=== PATIENT | male | born 1965 | race Caucasian/White ===

== ENCOUNTER 2019-08-14 17:17 | Emergency (ER) | payer MEDICARE, SELFPAY ==
[2019-08-14] VITALS (29 sets, daily range): BP systolic 103–134; BP diastolic 63–82; PULSE 71–86; RESP 10–22; TEMP 36.9; O2SAT 91–98; BMI 42.0
--- NOTE | 2019-08-14 17:35 | XRR_ITS ---
PROCEDURE INFORMATION: Exam: XR Chest, 1 View Exam date and time: 08/14/2019 5:36 PM Age: 54 years old Clinical indication: Chest pain; Additional info: Cp TECHNIQUE: Imaging protocol: XR of the chest Views: 1 view. COMPARISON: CR Chest 1 [place] [id number] 10/22/2018 5:23 PM FINDINGS: Lungs: Unremarkable. No consolidation. Pleural space: Unremarkable. No pleural effusion. No pneumothorax. Heart/Mediastinum: Unremarkable. No cardiomegaly. Bones/joints: C-spine hardware. XR/XR chest 1V portable [id number] IMPRESSION: No acute findings.
--- NOTE | 2019-08-14 17:35 | ECG_ITS ---
Measurements Intervals [place] Rate: 76 P: 19 PA: 156 QRS: 39 QRSD: 75 T: 36 QT: 364 QTc: 411 SINUS RHYTHM Compared to ECG 10/25/2016 19:29:29 No significant changes Electronically Signed On 08-14-2019 20:29:59 BIOMATHEMATICIAN by Jaleel Chavez M.D. [id number]
[2019-08-14 17:59] LABS: Basophils % 0.3 %; Eosinophils # 0.4 10^3/uL (0.0-0.8); Eosinophils % 4.2 %; Hematocrit 41.4 % (42.0-52.0); Hemoglobin 13.2 g/dL (11.7-16.6); Lymphocytes # 3.2 10^3/uL (0.8-4.8); Lymphocytes % 36.1 %; Mean Corpuscular HGB Conc 31.9 g/dL (30.0-36.0); Mean Corpuscular Hemoglobin 27.3 pg (28.0-34.0); Mean Corpuscular Volume 85.5 fL (80-94); Mean Platelet Volume 9.7 fL (7.4-10.4); Monocytes # 0.7 10^3/uL (0.2-0.9); Monocytes % 7.6 %; Neutrophils # 4.5 10^3/uL (1.8-7.7); Neutrophils % 51.6 %; Nucleated Red Blood Cells % 0 %; Platelet Count 252 10^3/cmm (130-400); Red Blood Count 4.84 10^6/uL (4.1-5.3); Red Cell Distribution Width 13.2 % (12.1-15.1); White Blood Count 8.8 10^3/uL (4.0-10.0)
[2019-08-14 18:09] LABS: INR 0.97 (0.8-1.2)
--- NOTE | 2019-08-14 18:37 | ED_ITS ---
HPI - Chest Pain General: Chief Complaint: Chest Pain Stated Complaint: chest pain/SOB Time Seen by Provider: 08/14/19 18:34 History of Present Illness: HPI narrative: 54-year-old male sent by urgent care for chest discomfort. He has been having body aches, chills, cough, flulike symptoms for 3 days. States that when he stands up, he gets dizzy. MD complaint: chest pain and chest discomfort Pertinent past history: coronary artery disease and other (History of Ltmot-Jqyjdtjjz-Dtmxa syndrome, status post ablation.) Onset (ago): day(s) (3) Timing of current episode: episodic Onset: during rest Pain location: right chest Pain radiation: none Quality: sharp Exacerbating factors: nothing Associated symptoms: Reports dyspnea and other (Chills, cough, body aches); Deny fever(s), palpitations or vomiting Treatment prior to arrival: none Review of Systems 2 Const: Denies: fever Eyes: Denies: change in vision or blurry vision ENMT: Reports: post nasal drip; Denies: painful swallowing, swelling of lips/tongue or facial/sinus pain Card: Denies: palpitations Resp: Reports: shortness of breath and productive cough; Denies: non-productive cough or wheezing GI: Denies: vomiting : Denies: difficulty urinating or painful urination Musc: Reports: back pain; Denies: redness or joint warmth Skin/Breast: Denies: rash, itching or redness Neuro: Reports: dizziness and vertigo; Denies: headache, confusion or seizure-like activity Psych: Denies: anxiety PFSH ED PFSH: Social History Smoking and tobacco status: never smoked Physical Exam Const: GENERAL APPEARANCE: well developed ORIENTATION/CONSCIOUSNESS: Yes oriented to person, Yes oriented to place and Yes oriented to time HENMT: COMMON NORMALS: normocephalic, external ears normal and external nose normal HEAD & SCALP: normocephalic; no scalp tenderness FACE & SINUS: normal facial exam NOSE: external nose normal and no nasal discharge EXTERNAL EAR: Yes external ears normal MOUTH: tongue normal TEETH & GINGIVA: no abnormal tooth and associated gingiva THROAT: posterior oropharynx normal; no peritonsillar mass Eye: COMMON NORMALS: PERRL, EOMs intact bilaterally and conjunctivae normal EYELID: eyelids normal CONJUNCTIVA: Yes conjunctivae normal PUPIL: Yes PERRL Chest: COMMONS NORMALS: inspection of chest normal CHEST: No tenderness Resp: COMMON NORMALS: clear to auscultation bilaterally EFFORT & INSPECTION: No tachypneic, No respiratory distress, No retractions, No uses accessory muscles and No tracheal deviation AUSCULTATION: clear to auscultation bilaterally, no rhonchi, no wheezes and lung sounds not diminished Cardio: COMMON NORMALS: regular rate and regular rhythm RATE: regular rate RHYTHM: regular rhythm HEART SOUNDS: no murmurs PERIPHERAL PULSES: radial pulses present GI: INSPECTION: No abdominal distension AUSCULTATION: No hyperactive bowel sounds and No hypoactive bowel sounds PALPATION: No guarding and No rigid PERCUSSION: no dullness to percussion and no tympanic to percussion Neuro: SENSORIUM/ORIENTATION: Yes oriented to person, Yes oriented to place and Yes oriented to time Psych: COMMON NORMALS: mental status grossly normal Skin: COMMON NORMALS: no rashes or lesions noted GENERAL SKIN EXAM: no rashes or lesions noted Course Vital Signs: Vital signs: Vital Signs Temperature 98.5 F 08/14/19 17:38 Pulse Rate 79 08/14/19 21:35 Respiratory Rate 22 H 08/14/19 21:35 Blood Pressure 116/66 08/14/19 21:35 Pulse Oximetry 95 08/14/19 21:35 MDM - Chest Pain MDM Narrative: Medical decision making narrative: 54-year-old male presents with chest discomfort. He has had flulike symptoms for several days. His fluids are negative. His labs are benign, save a low bicarbonate level. He was given a liter of fluid, and is feeling improved. His chest x-ray is negative. His EKGs are normal x2. His troponins are negative x2. Lab Data: Labs: Lab Results 08/14/19 08/14/19 08/14/19 Range/Units 17:30 17:30 18:32 WBC 8.8 (4.0-10.0) 10^3/ uL RBC 4.84 (4.1-5.3) 10^6/u L Hgb 13.2 (11.7-16.6) g/dL Hct 41.4 L (42.0-52.0) % MCV 85.5 (80-94) fL MCH 27.3 L (28.0-34.0) pg MCHC 31.9 (30.0-36.0) g/dL RDW 13.2 (12.1-15.1) % Plt Count 252 (130-400) 10^3/c mm MPV 9.7 (7.4-10.4) fL Neut % (Auto) 51.6 % Lymph % (Auto) 36.1 % Phillips % (Auto) 7.6 % Eos % (Auto) 4.2 % Baso % (Auto) 0.3 % Neut # (Auto) 4.5 (1.8-7.7) 10^3/u L Lymph # (Auto) 3.2 (0.8-4.8) 10^3/u L Phillips # (Auto) 0.7 (0.2-0.9) 10^3/u L Eos # (Auto) 0.4 (0.0-0.8) 10^3/u L Baso # (Auto) 0.0 (0.0-0.1) 10^3/u L Nucleated RBC % (a uto) 0 % Nucleated RBCs # 0.0 /100WBC PT 13.20 (10.5-13.3) SECO NDS INR 0.97 (0.8-1.2) Sodium 139 (136-145) mmol/L Potassium 4.6 (3.5-5.1) mmol/L Chloride 106 (98-107) mmol/L Carbon Dioxide 20 L (22-29) mmol/L Anion Gap 17.6 (5-19) BUN 14 (6-20) mg/dL Creatinine 1.0 (0.7-1.2) mg/dL GFR Calculation 77.3 L (90-130) mL/min Glucose 102 (65-115) mg/dL Calcium 8.1 L (8.5-10.5) mg/dL Total Bilirubin 0.2 (0.15-1.2) mg/dL AST 29 (0-40) U/L ALT 41 (0-41) U/L Alkaline Phosphata se 101 (40-130) IU/L Troponin T Baselin e (0-15) ng/mL Troponin T 120 Min [place] (0-15) ng/mL Delta Troponin T (0-10) ABS# NT-Pro-B Natriuret Pep 71 (0-125) pg/mL Total Protein 7.2 (6.6-8.7) g/dL Albumin 3.8 (3.5-5.2) g/dL Globulin 3.4 (1.3-4.6) g/dL Influenza Type A A g (Negative) POC Influenza B Ag (Negative) 08/14/19 08/14/19 08/14/19 Range/Units 18:32 18:50 20:23 WBC (4.0-10.0) 10^3/ uL RBC (4.1-5.3) 10^6/u L Hgb (11.7-16.6) g/dL Hct (42.0-52.0) % MCV (80-94) fL MCH (28.0-34.0) pg MCHC (30.0-36.0) g/dL RDW (12.1-15.1) % Plt Count (130-400) 10^3/c mm MPV (7.4-10.4) fL Neut % (Auto) % Lymph % (Auto) % Phillips % (Auto) % Eos % (Auto) % Baso % (Auto) % Neut # (Auto) (1.8-7.7) 10^3/u L Lymph # (Auto) (0.8-4.8) 10^3/u L Phillips # (Auto) (0.2-0.9) 10^3/u L Eos # (Auto) (0.0-0.8) 10^3/u L Baso # (Auto) (0.0-0.1) 10^3/u L Nucleated RBC % (a uto) % Nucleated RBCs # /100WBC PT (10.5-13.3) SECO NDS INR (0.8-1.2) Sodium (136-145) mmol/L Potassium (3.5-5.1) mmol/L Chloride (98-107) mmol/L Carbon Dioxide (22-29) mmol/L Anion Gap (5-19) BUN (6-20) mg/dL Creatinine (0.7-1.2) mg/dL GFR Calculation (90-130) mL/min Glucose (65-115) mg/dL Calcium (8.5-10.5) mg/dL Total Bilirubin (0.15-1.2) mg/dL AST (0-40) U/L ALT (0-41) U/L Alkaline Phosphata se (40-130) IU/L Troponin T Baselin e 11 (0-15) ng/mL Troponin T 120 Min [place] 9.86 (0-15) ng/mL Delta Troponin T -1.14 L (0-10) ABS# NT-Pro-B Natriuret Pep (0-125) pg/mL Total Protein (6.6-8.7) g/dL Albumin (3.5-5.2) g/dL Globulin (1.3-4.6) g/dL Influenza Type A A g Negative (Negative) POC Influenza B Ag Negative (Negative) Discharge Plan Discharge Clinical Impression: Atypical chest pain Condition: Stable Prescriptions: New ketorolac 10 mg tablet 10 mg PO Q6H PRN (Reason: pain) 5 Days RF: 0 No Action trazodone 100 mg tablet 200 mg PO .QHS RF: 0 bupropion HCl [Wellbutrin XL] 300 mg tablet extended release 24 hr 300 mg PO QAM RF: 0 bupropion HCl [Wellbutrin XL] 150 mg tablet extended release 24 hr 150 mg PO QAM RF: 0 topiramate [Topamax] 100 mg tablet 100 mg PO BID RF: 0 venlafaxine [Effexor XR] 150 mg capsule,extended release 24hr 150 mg PO DAILY RF: 0 Discharge Orders: Discharge Order (Routine); Ordered 08/14/19 Ordered By: Jimbo Davis Referrals: Pawel Aguilar MD [Primary Care Provider] - 4-7 days Discharge Diet: Advance as tolerated Discharge Activity: Increase activity as tolerated Patient Instructions: Chest Pain - Noncardiac, Chest Pain (ED) Activity Restrictions/Additional Instructions: Return for worsening pain, shortness of breath, etc. despite treatment. Return also for fever greater than 100, other concerning symptoms. Discharge Date/Time: 08/14/19 21:45 Coding Level of Care Code ED Functional Director for Priyankag Fwd Exam Comprehensive
--- NOTE | 2019-08-14 19:17 | PC.NURSE ---
Introduced self to patient and initiated vital signs. Patient presents A&O x 4. NAD, ABCs intact, MAEW and agreeable to treatment. Respirations are even and unlabored. Pt states that the chief complaint for the ER visit today is due to flu like symptoms and generalized body aches. Pt states that he was in Urgent Care this morning and the provider recommended that he come to ER due to hearing something with my heart. Pt denies any vision disturbances or lightheadedness. Bed left in lowest position in semi-fowlers with side rails up.Reassured patient of needs and will continue to monitor.
[2019-08-14 19:22] LABS: Alanine Aminotransferase 41 U/L (0-41); Albumin Level 3.8 g/dL (3.5-5.2); Alkaline Phosphatase 101 IU/L (40-130); Anion Gap 17.6 (5-19); Aspartate Amino Transferase 29 U/L (0-40); Blood Urea Nitrogen 14 mg/dL (6-20); Calcium 8.1 mg/dL (8.5-10.5); Carbon Dioxide 20 mmol/L (22-29); Chloride 106 mmol/L (98-107); Globulin 3.4 g/dL (1.3-4.6); Glomerular Filtration Rate 77.3 mL/min (90-130); Glucose 102 mg/dL (65-115); NT Pro B Type Natriuretic Pept 71 pg/mL (0-125); Potassium 4.6 mmol/L (3.5-5.1); Sodium 139 mmol/L (136-145); Total Bilirubin 0.2 mg/dL (0.15-1.2); Total Protein 7.2 g/dL (6.6-8.7)
[2019-08-14 19:32] LABS: Influenza A by IFA Negative (Negative); Influenza B by IFA Negative (Negative)
--- NOTE | 2019-08-14 19:35 | ECG_ITS ---
Measurements Intervals [place] Rate: 77 P: 65 FL: 168 QRS: 44 QRSD: 74 T: 44 QT: 382 QTc: 434 SINUS RHYTHM INTERPRETATION BASED ON A DEFAULT AGE OF 40 YEARS Compared to ECG 08/14/2019 17:46:39 No significant changes Electronically Signed On 08-15-2019 20:02:22 PHOTOGRAPHIC ARTIST by Jaleel Chavez M.D. [id number]
[2019-08-14 19:36] LABS: Troponin(5th) Baseline 11 ng/mL (0-15)
[2019-08-14] MEDS: sodium chloride 0.9% 1,000 ML 999 ML IV (19:38)
--- NOTE | 2019-08-14 19:51 | PC.NURSE ---
EKG performed and shown to ED physician.
[2019-08-14 20:52] LABS: Troponin 5 2HR 9.86 ng/mL (0-15); Troponin 5 2HR Delta -1.14 ABS# (0-10)
== END 2019-08-14 21:45 ==
PROVIDERS: Emergency Medicine; Emergency Provider Emergency Medicine; Family Provider Family Medicine; PCP Family Medicine
DX: R07.89 Other chest pain (principal); I25.10 Atherosclerotic heart disease of native coronary artery without angina pectoris
CPT/HCPCS: 71045; 80053; 83880; 84484; 85025; 85610; 87804; 93005; 96360; 96361; 96374; 99283; 99284; J7030

== ENCOUNTER → 2019-09-08 11:19 | Outpatient (BNVA) | payer MEDICARE, SELFPAY | PROVIDERS: Family Provider Family Medicine; PCP Family Medicine; Visit Provider Psychiatry & Neurology Psychiatry | DX: F33.42 Major depressive disorder, recurrent, in full remission (principal); F41.1 Generalized anxiety disorder; G47.33 Obstructive sleep apnea (adult) (pediatric) | CPT/HCPCS: 99213 ==

== ENCOUNTER → 2019-12-16 07:36 | Outpatient (BNVA) | payer MEDICARE, SELFPAY | PROVIDERS: Family Provider Family Medicine; PCP Family Medicine; Visit Provider Psychiatry & Neurology Psychiatry | DX: F33.42 Major depressive disorder, recurrent, in full remission (principal); F41.1 Generalized anxiety disorder; G47.33 Obstructive sleep apnea (adult) (pediatric) | CPT/HCPCS: 99213 ==

== ENCOUNTER → 2020-01-03 15:11 | Outpatient (BNVA) | payer MEDICARE, SELFPAY | PROVIDERS: Family Provider Family Medicine; PCP Family Medicine; Visit Provider Specialist | DX: M25.561 Pain in right knee (principal) | CPT/HCPCS: 73560; 73565 ==

== ENCOUNTER → 2020-03-17 08:16 | Outpatient (BNVA) | payer MEDICARE, SELFPAY | PROVIDERS: Family Provider Family Medicine; PCP Family Medicine; Visit Provider Psychiatry & Neurology Psychiatry | DX: F33.42 Major depressive disorder, recurrent, in full remission (principal); F41.1 Generalized anxiety disorder; G47.33 Obstructive sleep apnea (adult) (pediatric) | CPT/HCPCS: 99213 ==

== ENCOUNTER → 2020-05-31 08:01 | Outpatient (BNVA) | payer MEDICARE, SELFPAY | PROVIDERS: Family Provider Family Medicine; PCP Family Medicine; Visit Provider Psychiatry & Neurology Psychiatry | DX: F33.42 Major depressive disorder, recurrent, in full remission (principal); F41.1 Generalized anxiety disorder; G47.33 Obstructive sleep apnea (adult) (pediatric) | CPT/HCPCS: 99213 ==

== ENCOUNTER 2020-06-20 14:04 | Outpatient (CLI) | payer MEDICARE, SELFPAY ==
[2020-06-20 15:58] LABS: 25 Hydroxy Vitamin D 43 ng/mL (30-100)
[2020-06-21 13:07] LABS: Angiotensin Converting Enzyme 40 U/L (9-67)
[2020-06-24 12:53] LABS: Vit D 1,25 (Oh)2, Total 49 pg/mL (18-72); Vit D2 1,25 (Oh)2 <8 pg/mL; Vit D3 1,25 (Oh)2 49 pg/mL
== END 2020-06-20 14:05 | disposition home or self-care (01) ==
PROVIDERS: PCP Family Medicine; Visit Provider Internal Medicine Critical Care Medicine
DX: D86.3 Sarcoidosis of skin (principal)
CPT/HCPCS: 36415; 82164; 82306; 82652

== ENCOUNTER → 2020-06-30 11:30 | Outpatient (BNVA) | payer MEDICARE, SELFPAY | PROVIDERS: PCP Family Medicine; Visit Provider Internal Medicine Critical Care Medicine | DX: Z11.59 Encounter for screening for other viral diseases (principal) | CPT/HCPCS: 87635 ==

== ENCOUNTER 2020-07-05 08:14 | Outpatient (CLI) | payer MEDICARE, SELFPAY ==
--- NOTE | 2020-07-05 15:31 | PFTS_ITS ---
Date of Study:07/05/20 Date of Dictation: 07/12/20 MECHANICS: Forced vital capacity (FVC) is normal . Forced expiratory volume in one second (FEV1) is reduced corrected post bronchodilator. FEV1/FVC is reduced. There is significant response to bronchodilators. FLOW VOLUME LOOP: Sloping of expiratory limb suggestive of airway obstruction . LUNG VOLUMES: Total lung capacity (TLC) is low normal. Residual volume (RV) is mildly reduced. DIFFUSING CAPACITY FOR CARBON MONOXIDE: Normal . INTERPRETATION: The pulmonary function tests are consistent with mixed pattern. Spirometry and flow volume loop suggestive of mild obstruction corrected with bronchodilators. Lung volumes are low normal with normal gas transfer. Please correlate clinically MTDD
== END 2020-07-05 08:15 | disposition home or self-care (01) ==
LOC: RT 08:20
PROVIDERS: PCP Family Medicine; Visit Provider Internal Medicine Critical Care Medicine
DX: D86.3 Sarcoidosis of skin (principal)
CPT/HCPCS: 94060; 94726; 94729; J7611

== ENCOUNTER → 2020-07-24 09:16 | Outpatient (BNVA) | payer MEDICARE, SELFPAY | PROVIDERS: PCP Family Medicine; Visit Provider Specialist | DX: M17.12 Unilateral primary osteoarthritis, left knee (principal); M25.462 Effusion, left knee | CPT/HCPCS: 73560; 73565 ==

== ENCOUNTER → 2020-08-24 08:12 | Outpatient (BNVA) | payer MEDICARE, SELFPAY | PROVIDERS: PCP Family Medicine; Visit Provider Psychiatry & Neurology Psychiatry | DX: F33.42 Major depressive disorder, recurrent, in full remission (principal); F41.1 Generalized anxiety disorder; G47.33 Obstructive sleep apnea (adult) (pediatric) | CPT/HCPCS: 99214 ==

== ENCOUNTER → 2020-11-16 13:10 | Outpatient (BNVA) | payer MEDICARE, SELFPAY | PROVIDERS: PCP Family Medicine; Visit Provider Psychiatry & Neurology Psychiatry | DX: F33.42 Major depressive disorder, recurrent, in full remission (principal); F41.1 Generalized anxiety disorder; G47.33 Obstructive sleep apnea (adult) (pediatric) | CPT/HCPCS: 99213 ==

== ENCOUNTER → 2021-01-25 15:12 | Outpatient (BNVA) | payer MEDICARE, SELFPAY | PROVIDERS: PCP Family Medicine; Visit Provider Psychiatry & Neurology Psychiatry | DX: F33.42 Major depressive disorder, recurrent, in full remission (principal); F41.1 Generalized anxiety disorder; G47.33 Obstructive sleep apnea (adult) (pediatric) | CPT/HCPCS: 99213 ==

== ENCOUNTER → 2021-04-18 12:59 | Outpatient (BNVA) | payer MEDICARE, SELFPAY | PROVIDERS: PCP Family Medicine; Referring Provider Family Medicine; Visit Provider Specialist | DX: M16.0 Bilateral primary osteoarthritis of hip (principal) | CPT/HCPCS: 73502 ==

== ENCOUNTER → 2021-04-19 14:57 | Outpatient (BNVA) | payer MEDICARE, SELFPAY | PROVIDERS: PCP Family Medicine; Visit Provider Psychiatry & Neurology Psychiatry | DX: F33.42 Major depressive disorder, recurrent, in full remission (principal); F41.1 Generalized anxiety disorder; G47.33 Obstructive sleep apnea (adult) (pediatric) | CPT/HCPCS: 99214 ==

== ENCOUNTER → 2021-07-12 12:54 | Outpatient (BNVA) | payer MEDICARE, SELFPAY | PROVIDERS: PCP Family Medicine; Visit Provider Psychiatry & Neurology Psychiatry | DX: F33.42 Major depressive disorder, recurrent, in full remission (principal); F41.1 Generalized anxiety disorder; G47.33 Obstructive sleep apnea (adult) (pediatric) | CPT/HCPCS: 99213 ==

== ENCOUNTER → 2021-10-04 12:43 | Outpatient (BNVA) | payer MEDICARE, SELFPAY | PROVIDERS: PCP Family Medicine; Visit Provider Psychiatry & Neurology Psychiatry | DX: F33.42 Major depressive disorder, recurrent, in full remission (principal); F41.1 Generalized anxiety disorder; G47.33 Obstructive sleep apnea (adult) (pediatric) | CPT/HCPCS: 99213 ==

== ENCOUNTER → 2021-11-08 08:52 | Outpatient (BNVA) | payer MEDICARE, SELFPAY | PROVIDERS: PCP Family Medicine; Visit Provider Specialist | DX: M17.0 Bilateral primary osteoarthritis of knee (principal); Z71.89 Other specified counseling | CPT/HCPCS: 20610; J7327 ==

== ENCOUNTER 2021-11-26 10:30 | Day surgery (SDC) | payer MEDICARE, SELFPAY ==
[2021-11-22 13:15] VITALS: BMI 40.8
--- NOTE | 2021-11-26 08:02 | P.HP_ITS ---
Same Day Surgery H&P Indication for Procedure/HPI DATE OF PROCEDURE: November 26, 2021 CHIEF COMPLAINT/INDICATIONFOR SURGICAL PROCEDURE: Dysphagia PREOP DIAGNOSIS: Dysphagia PLANNED PROCEDURE: Operation Date: 11/26/21 11:45 Proposed Procedures p EGD 28751,R13.10(Not Applicable) - Craig Barros MD Medications/Allergies* Home Medications Medication Instructions Recorded Confirmed Type albuterol sulfate 90 mcg/actuation 2 puff INHALATION Q6H PRN 06/20/20 11/22/21 History aerosol inhaler (Ventolin HFA) fluticasone 250 mcg-salmeterol 50 1 inh INHALATION BID 06/20/20 11/22/21 History mcg/dose blistr powdr for inhalation (Advair Diskus) amitriptyline 25 mg tablet 25 mg PO DAILY 04/19/21 11/22/21 History calcitriol 0.25 mcg capsule 0.25 mcg PO DAILY 07/12/21 11/22/21 History isosorbide mononitrate 30 mg 30 mg PO .HS tab 07/12/21 11/22/21 History tablet,extended release 24 hr metformin 1,000 mg tablet 1,000 mg PO BID 07/12/21 11/22/21 History metoprolol succinate 25 mg 25 mg PO BID 07/12/21 11/22/21 History tablet,extended release 24 hr pantoprazole 40 mg tablet,delayed 40 mg PO DAILY 07/12/21 11/22/21 History release potassium chloride 20 mEq 20 meq PO QID tab 07/12/21 11/22/21 History tablet,extended release(part/cryst) ascorbic acid (vitamin C) 1,500 mg 1,500 mg PO DAILY tab 10/31/21 11/22/21 History tablet,extended release ferrous gluconate 324 mg (38 mg 324 mg PO DAILY 11/01/21 11/22/21 History iron) tablet morphine 15 mg tablet,extended 15 mg PO Q12H 11/01/21 11/22/21 History release nitroglycerin 0.4 mg sublingual 0.4 mg SUBLINGUAL Q5M PRN 11/01/21 11/22/21 History tablet (Nitrostat) oxycodone-acetaminophen 7.5 mg-325 1 tab PO TID PRN 11/01/21 11/22/21 History mg tablet (Percocet) rosuvastatin 20 mg tablet 20 mg PO DAILY 11/01/21 11/22/21 History ergocalciferol (vitamin D2) 1,000 1,000 unit PO BID 11/22/21 11/22/21 History unit capsule Pertinent History/Comorbid Conditions* Medical History (Updated 11/20/21 @ 13:43 by Craig Barros MD) Anxiety Asthma Depression, major, recurrent, in complete remission Diabetes Generalized anxiety disorder Obstructive sleep apnea Family History (Updated 06/20/20 @ 10:20 by Amber Holman LPN) Diabetes Father Sister Lung disease Mother Father Sister Cancer Family/Other Social History Smoking and tobacco status: never smoked Second hand smoke exposure: Yes Smoking risk assessment/counseling performed?: No Alcohol intake: former Desire information about alcohol rehabilitation?: No Counseling given: No Desire information about substance/drug rehabilitation?: No Counseling given: No Lives independently: Yes Household members: friend(s) Marital status: / Current occupational status: disabled History of recent travel: No Current gender identity: Male Pertinent Exam Findings alert, oriented x 3, clear to auscultation bilaterally, regular rate & rhythm, operative site marked and procedure specific exam findings Recommendations Surgery/Procedure today Coding Level of Care Code Acute Veterinary Technologist for Dali Sigala
[2021-11-26 10:55] VITALS: BP 121/76; PULSE 75; RESP 20; TEMP 36.1; O2SAT 96
--- NOTE | 2021-11-26 11:07 | P.ANESASSM_ITS ---
Pre-Anesthetic Assessment Height/Weight: Height 1.78 m Weight 129.274 kg Temp Pulse Resp BP Pulse Ox 97.0 F L 75 20 H 121/76 96 11/26/21 10:55 11/26/21 10:55 11/26/21 10:55 11/26/21 10:55 11/26/21 10:55 Preop Diagnosis: Dysphagia Operation Date: 11/26/21 11:45 Proposed Procedures p EGD 57514,R13.10(Not Applicable) - Craig Barros MD Familial anesthetic complications: none Was Beta Etta taken within 24 hours: N/A Was Clonidine taken within 24 hours: N/A Last intake: Intake Last Liquid Date 11/26/21 Last Liquid Time 00:30 Last Solid Date 11/25/21 Last Solid Time 13:00 Social No alcohol and No tobacco Exam alert, oriented x 3, clear to auscultation bilaterally and regular rate & rhythm Airway Submandibular: within normal limits Cervical ROM: Other (very limited secondary to surgical fixation) Pulmonary Asthma and Sleep Apnea CV/HEM Hypertension GI Gastroesophageal Reflux Disease dysphagia Metabolic Hyperlipidemia and Morbid Obesity [facility] [place] Osteoarthritis/DJD chronic pain/opioid Neuropsych Anxiety and Depression Anesthetic Plan ASA status: 3 Anesthesia: MAC Medications/Allergies Home Medications Medication Instructions Recorded Confirmed Last Taken Type albuterol sulfate 90 mcg/actuation 2 puff INHALATION Q6H PRN 06/20/20 11/22/21 Unknown History aerosol inhaler (Ventolin HFA) fluticasone 250 mcg-salmeterol 50 1 inh INHALATION BID 06/20/20 11/22/21 Unknown History mcg/dose blistr powdr for inhalation (Advair Diskus) ketoconazole 2 % topical cream 1 applic TOPICAL BID #60 g 12/11/20 11/22/21 Unknown Rx topiramate 100 mg tablet (Topamax) 100 mg PO BID #180 tab 03/29/21 11/22/21 Unknown Rx bupropion HCl 150 mg 24 hr tablet, 150 mg PO QAM #90 tab 04/04/21 11/22/21 Unknown Rx extended release (Wellbutrin XL) bupropion HCl 300 mg 24 hr tablet, 300 mg PO QAM #90 tab 04/04/21 11/22/21 Unknown Rx extended release (Wellbutrin XL) trazodone 100 mg tablet 200 mg PO .HS #180 tab 04/04/21 11/22/21 Unknown Rx venlafaxine 150 mg 150 mg PO DAILY #90 cap 04/04/21 11/22/21 Unknown Rx capsule,extended release 24 hr (Effexor XR) amitriptyline 25 mg tablet 25 mg PO DAILY 04/19/21 11/22/21 Unknown History calcitriol 0.25 mcg capsule 0.25 mcg PO DAILY 07/12/21 11/22/21 Unknown History isosorbide mononitrate 30 mg 30 mg PO .HS tab 07/12/21 11/22/21 Unknown History tablet,extended release 24 hr metformin 1,000 mg tablet 1,000 mg PO BID 07/12/21 11/22/21 Unknown History metoprolol succinate 25 mg 25 mg PO BID 07/12/21 11/22/21 Unknown History tablet,extended release 24 hr pantoprazole 40 mg tablet,delayed 40 mg PO DAILY 07/12/21 11/22/21 Unknown History release potassium chloride 20 mEq 20 meq PO QID tab 07/12/21 11/22/21 Unknown History tablet,extended release(part/cryst) ascorbic acid (vitamin C) 1,500 mg 1,500 mg PO DAILY tab 10/31/21 11/22/21 Unknown History tablet,extended release ferrous gluconate 324 mg (38 mg 324 mg PO DAILY 11/01/21 11/22/21 Unknown History iron) tablet morphine 15 mg tablet,extended 15 mg PO Q12H 11/01/21 11/22/21 Unknown History release nitroglycerin 0.4 mg sublingual 0.4 mg SUBLINGUAL Q5M PRN 11/01/21 11/22/21 Unknown History tablet (Nitrostat) oxycodone-acetaminophen 7.5 mg-325 1 tab PO TID PRN 11/01/21 11/22/21 Unknown History mg tablet (Percocet) rosuvastatin 20 mg tablet 20 mg PO DAILY 11/01/21 11/22/21 Unknown History ergocalciferol (vitamin D2) 1,000 1,000 unit PO BID 11/22/21 11/22/21 Unknown History unit capsule PENDING SALE TO [facility] Anesthesia Medical History Anxiety Asthma Depression, major, recurrent, in complete remission Diabetes Generalized anxiety disorder Obstructive sleep apnea Family History Mother Lung disease Father Lung disease Diabetes Sister Lung disease Diabetes Family/Other Cancer Social History Smoking and tobacco status: never smoked Second hand smoke exposure: Yes Smoking risk assessment/counseling performed?: No Alcohol intake: former Desire information about alcohol rehabilitation?: No Counseling given: No Desire information about substance/drug rehabilitation?: No Counseling given: No Lives independently: Yes Household members: friend(s) Marital status: / Current occupational status: disabled History of recent travel: No Current gender identity: Male Data Anesthesia Cardiac Studies: No Data to Display
[2021-11-26] MEDS: sodium chloride 0.9% 1,000 ML 30 ML IV (11:20)
[2021-11-26 12:08] VITALS: BP 117/80; PULSE 74; RESP 16; TEMP 36.1; O2SAT 94
[2021-11-26 12:16] VITALS: BP 118/80; PULSE 71; RESP 18; O2SAT 94
--- NOTE | 2021-11-26 13:54 | ANE.PACU2 ---
Inpatient post-anesthesia follow up: Airway intact: Yes Vital signs: Temperature 97 F Pulse Rate 71 Respiratory Rate 18 Blood Pressure 118/80 Pulse Oximetry 94 Oxygen Delivery Me thod Room Air Oxygen Flow Rate Fraction of Inspir ed Oxygen Hydration adequate: Yes Nausea and vomiting: No Pain level: 1 Mental status: Baseline
[2021-11-27 13:47] LABS: H. Pylori / CLO Test Negative
== END 2021-11-26 13:27 | disposition home or self-care (01) ==
PROVIDERS: PCP Family Medicine; Visit Provider Internal Medicine
PROC: 0DJ08ZZ Inspection of Upper Intestinal Tract, Via Natural or Artificial Opening Endoscopic (ICD-10-PCS; CPT 43235; principal; 2021-11-26 11:45)
DX: R13.10 Dysphagia, unspecified (principal); K21.00 Gastro-esophageal reflux disease with esophagitis, without bleeding; K44.9 Diaphragmatic hernia without obstruction or gangrene; K29.70 Gastritis, unspecified, without bleeding; F41.9 Anxiety disorder, unspecified; J45.909 Unspecified asthma, uncomplicated; F33.42 Major depressive disorder, recurrent, in full remission; F41.1 Generalized anxiety disorder; G47.33 Obstructive sleep apnea (adult) (pediatric)
CPT/HCPCS: 43239; 87077; J2704; J7030

== ENCOUNTER → 2022-02-21 09:00 | Outpatient (BNVA) | payer MEDICARE, SELFPAY | PROVIDERS: PCP Family Medicine; Visit Provider Specialist | DX: M17.0 Bilateral primary osteoarthritis of knee (principal) | CPT/HCPCS: 20610; J2795; J3301; J8540 ==

== ENCOUNTER → 2022-03-13 11:59 | Outpatient (BNVA) | payer MEDICARE, SELFPAY | PROVIDERS: PCP Family Medicine; Referring Provider Family Medicine; Visit Provider Internal Medicine | DX: E20.9 Hypoparathyroidism, unspecified (principal); E11.9 Type 2 diabetes mellitus without complications; E04.1 Nontoxic single thyroid nodule; Z79.84 Long term (current) use of oral hypoglycemic drugs | CPT/HCPCS: 36415; 80061; 82306; 82310; 83036; 83735; 83970; 84100; 84439; 84443; 99204 ==

== ENCOUNTER 2022-03-14 13:53 | Outpatient (CLI) | payer MEDICARE, SELFPAY ==
[2022-03-14 14:54] LABS: Creatinine Urine, Random 151 mg/dL (39-259); Microalbum Creatinine Ratio Ur 7 mg/dL (0-20); Microalbumin Random Urine 1 ug/dL (0-20)
== END 2022-03-14 13:54 | disposition home or self-care (01) ==
LOC: LAB 13:54
PROVIDERS: PCP Family Medicine; Visit Provider Internal Medicine
DX: E20.9 Hypoparathyroidism, unspecified (principal); E11.9 Type 2 diabetes mellitus without complications
CPT/HCPCS: 82044

== ENCOUNTER → 2022-04-19 13:02 | Outpatient (BNVA) | payer MEDICARE, SELFPAY | PROVIDERS: PCP Family Medicine; Referring Provider Family Medicine; Visit Provider Podiatrist Foot & Ankle Surgery | DX: E11.9 Type 2 diabetes mellitus without complications (principal); G62.9 Polyneuropathy, unspecified; B35.1 Tinea unguium; L84 Corns and callosities; Z79.84 Long term (current) use of oral hypoglycemic drugs | CPT/HCPCS: 11721; 99204 ==

== ENCOUNTER → 2022-05-16 08:40 | Outpatient (BNVA) | payer MEDICARE, SELFPAY | PROVIDERS: PCP Family Medicine; Visit Provider Specialist | DX: M17.0 Bilateral primary osteoarthritis of knee (principal) | CPT/HCPCS: 20610; J7327 ==

== ENCOUNTER 2022-06-06 10:03 | Outpatient (CLI) | payer MEDICARE, SELFPAY ==
--- NOTE | 2022-06-06 10:15 | US_ITS ---
WS: [id number] THYROID ULTRASOUND HISTORY: Thyroid nodule COMPARISON: None available. Technically difficult exam due to body habitus and deep position of the thyroid. Right lobe: 1.2 cm x 1.5 cm x 3.7 cm (w x ap x l). Volume: 3.4 cm3. Normal size and echotexture. No significant are dominant nodules are present. Left lobe: 1.5 cm x 1.6 cm x 3.7 cm (w x ap x l). Volume: 4.5 cm3. Normal size and echotexture. No significant or dominant nodules are present. Isthmus: 0.4 cm. US/US thyroid [id number] IMPRESSION: Normal thyroid ultrasound. Limited exam due to deep position of the thyroid.
== END 2022-06-06 10:04 | disposition home or self-care (01) ==
PROVIDERS: PCP Family Medicine; Visit Provider Internal Medicine
DX: E04.1 Nontoxic single thyroid nodule (principal)
CPT/HCPCS: 76536

== ENCOUNTER → 2022-08-22 08:34 | Outpatient (BNVA) | payer MEDICARE, SELFPAY | PROVIDERS: PCP Family Medicine; Visit Provider Specialist | DX: M17.11 Unilateral primary osteoarthritis, right knee (principal) | CPT/HCPCS: 20610; J1100; J2795; J3301 ==

== ENCOUNTER → 2022-09-09 12:03 | Outpatient (BNVA) | payer MEDICARE, SELFPAY | PROVIDERS: PCP Family Medicine; Visit Provider Internal Medicine | DX: D86.3 Sarcoidosis of skin (principal); E20.9 Hypoparathyroidism, unspecified; E11.9 Type 2 diabetes mellitus without complications; Z79.84 Long term (current) use of oral hypoglycemic drugs | CPT/HCPCS: 36415; 80053; 82306; 82310; 83036; 83735; 83970; 84100; 99214 ==

== ENCOUNTER 2022-09-17 13:26 | Outpatient (CLI) | payer MEDICARE, SELFPAY ==
[2022-09-17 14:27] LABS: Anion Gap 14.2 (5-19); Blood Urea Nitrogen 14 mg/dL (6-20); Calcium 7.3 mg/dL (8.5-10.5); Carbon Dioxide 24 mmol/L (22-29); Chloride 109 mmol/L (98-107); Glomerular Filtration Rate 137.9 mL/min (90-130); Glucose 106 mg/dL (65-115); Osmolality Calculated 297 mOsm/kg (285-295); Potassium 4.2 mmol/L (3.5-5.1); Sodium 143 mmol/L (136-145)
== END 2022-09-17 13:27 | disposition home or self-care (01) ==
PROVIDERS: PCP Family Medicine; Visit Provider Internal Medicine
DX: E11.9 Type 2 diabetes mellitus without complications (principal); E20.9 Hypoparathyroidism, unspecified
CPT/HCPCS: 36415; 80048

== ENCOUNTER 2022-10-03 14:15 | Outpatient (CLI) | payer MEDICARE, SELFPAY ==
[2022-10-03 15:39] LABS: Anion Gap 13.9 (5-19); Blood Urea Nitrogen 9 mg/dL (6-20); Calcium 7.6 mg/dL (8.5-10.5); Carbon Dioxide 24 mmol/L (22-29); Chloride 107 mmol/L (98-107); Glomerular Filtration Rate 115.4 mL/min (90-130); Glucose 127 mg/dL (65-115); Osmolality Calculated 292 mOsm/kg (285-295); Potassium 3.9 mmol/L (3.5-5.1); Sodium 141 mmol/L (136-145)
== END 2022-10-03 14:16 | disposition home or self-care (01) ==
LOC: LAB 14:17
PROVIDERS: PCP Family Medicine; Visit Provider Internal Medicine
DX: E11.9 Type 2 diabetes mellitus without complications (principal); E20.9 Hypoparathyroidism, unspecified
CPT/HCPCS: 36415; 80048

== ENCOUNTER 2022-10-25 14:45 | Outpatient (CLI) | payer MEDICARE, SELFPAY ==
[2022-10-25 15:37] LABS: Alanine Aminotransferase 16 U/L (0-41); Albumin Level 3.6 g/dL (3.5-5.2); Alkaline Phosphatase 66 U/L (40-130); Aspartate Amino Transferase 15 U/L (0-40); Blood Urea Nitrogen 15 mg/dL (6-20); Calcium 7.4 mg/dL (8.5-10.5); Carbon Dioxide 25 mmol/L (22-29); Chloride 106 mmol/L (98-107); Glomerular Filtration Rate 98.9 mL/min (90-130); Glucose 143 mg/dL (65-115); Osmolality Calculated 295 mOsm/kg (285-295); Sodium 141 mmol/L (136-145); Total Bilirubin 0.2 mg/dL (0.15-1.2); Total Protein 6.6 g/dL (6.6-8.7)
== END 2022-10-25 14:46 | disposition home or self-care (01) ==
PROVIDERS: PCP Family Medicine; Visit Provider Internal Medicine
DX: E20.9 Hypoparathyroidism, unspecified (principal); E11.9 Type 2 diabetes mellitus without complications
CPT/HCPCS: 80053

== ENCOUNTER 2022-11-19 13:33 | Outpatient (CLI) | payer MEDICARE, SELFPAY ==
[2022-11-19 15:15] LABS: Alanine Aminotransferase 13 U/L (0-41); Albumin Level 3.9 g/dL (3.5-5.2); Alkaline Phosphatase 69 U/L (40-130); Anion Gap 14.1 (5-19); Aspartate Amino Transferase 16 U/L (0-40); Blood Urea Nitrogen 11 mg/dL (6-20); Calcium 7.5 mg/dL (8.5-10.5); Carbon Dioxide 27 mmol/L (22-29); Chloride 104 mmol/L (98-107); Globulin 2.6 g/dL (1.3-4.6); Glomerular Filtration Rate 115.4 mL/min (90-130); Glucose 106 mg/dL (65-115); Osmolality Calculated 292 mOsm/kg (285-295); Potassium 4.1 mmol/L (3.5-5.1); Sodium 141 mmol/L (136-145); Total Bilirubin 0.2 mg/dL (0.15-1.2); Total Protein 6.5 g/dL (6.6-8.7)
== END 2022-11-19 13:34 | disposition home or self-care (01) ==
PROVIDERS: PCP Family Medicine; Visit Provider Internal Medicine
DX: E11.9 Type 2 diabetes mellitus without complications (principal); E20.9 Hypoparathyroidism, unspecified
CPT/HCPCS: 36415; 80053

== ENCOUNTER 2022-11-22 09:07 | Outpatient (CLI) | payer MEDICARE, SELFPAY ==
[2022-11-22 10:05] LABS: Alanine Aminotransferase 14 U/L (0-41); Albumin Level 3.6 g/dL (3.5-5.2); Alkaline Phosphatase 63 U/L (40-130); Anion Gap 12.2 (5-19); Aspartate Amino Transferase 16 U/L (0-40); Blood Urea Nitrogen 14 mg/dL (6-20); Calcium 7.7 mg/dL (8.5-10.5); Carbon Dioxide 30 mmol/L (22-29); Chloride 103 mmol/L (98-107); Globulin 2.6 g/dL (1.3-4.6); Glomerular Filtration Rate 137.9 mL/min (90-130); Glucose 122 mg/dL (65-115); Osmolality Calculated 294 mOsm/kg (285-295); Potassium 4.2 mmol/L (3.5-5.1); Sodium 141 mmol/L (136-145); Total Bilirubin 0.2 mg/dL (0.15-1.2); Total Protein 6.2 g/dL (6.6-8.7)
== END 2022-11-22 09:08 | disposition home or self-care (01) ==
PROVIDERS: PCP Family Medicine; Visit Provider Internal Medicine
DX: E11.9 Type 2 diabetes mellitus without complications (principal)
CPT/HCPCS: 80053

== ENCOUNTER → 2022-11-28 08:18 | Outpatient (BNVA) | payer MEDICARE, SELFPAY | PROVIDERS: PCP Family Medicine; Visit Provider Specialist | DX: M17.0 Bilateral primary osteoarthritis of knee (principal) | CPT/HCPCS: 20610; J7327 ==

== ENCOUNTER 2023-02-20 13:55 | Outpatient (CLI) | payer MEDICARE, SELFPAY ==
[2023-02-20 14:44] LABS: Calcium 7.1 mg/dL (8.5-10.5)
[2023-02-20 14:45] LABS: Alanine Aminotransferase 21 U/L (0-41); Albumin Level 3.9 g/dL (3.5-5.2); Alkaline Phosphatase 70 U/L (40-130); Anion Gap 13.1 (5-19); Aspartate Amino Transferase 17 U/L (0-40); Blood Urea Nitrogen 15 mg/dL (6-20); Calcium 7.2 mg/dL (8.5-10.5); Carbon Dioxide 26 mmol/L (22-29); Chloride 108 mmol/L (98-107); Globulin 2.6 g/dL (1.3-4.6); Glomerular Filtration Rate 98.9 mL/min (90-130); Glucose 114 mg/dL (65-115); Osmolality Calculated 298 mOsm/kg (285-295); Potassium 4.1 mmol/L (3.5-5.1); Sodium 143 mmol/L (136-145); Total Bilirubin 0.3 mg/dL (0.15-1.2); Total Protein 6.5 g/dL (6.6-8.7)
[2023-02-20 14:51] LABS: Parathyroid Hormone 13.8 pg/mL (15-65)
== END 2023-02-20 13:56 | disposition home or self-care (01) ==
LOC: LAB 13:57
PROVIDERS: PCP Family Medicine; Visit Provider Internal Medicine
DX: E11.9 Type 2 diabetes mellitus without complications (principal); E20.9 Hypoparathyroidism, unspecified
CPT/HCPCS: 80053; 82310; 83970

== ENCOUNTER → 2023-02-26 08:29 | Outpatient (BNVA) | payer MEDICARE, SELFPAY | PROVIDERS: PCP Family Medicine; Visit Provider Internal Medicine | DX: E20.9 Hypoparathyroidism, unspecified (principal); E11.9 Type 2 diabetes mellitus without complications; Z79.84 Long term (current) use of oral hypoglycemic drugs | CPT/HCPCS: 99214 ==

== ENCOUNTER 2023-03-06 09:39 | Outpatient (CLI) | payer MEDICARE, SELFPAY ==
[2023-03-06 10:58] LABS: Alanine Aminotransferase 25 U/L (0-41); Albumin Level 4.1 g/dL (3.5-5.2); Alkaline Phosphatase 67 U/L (40-130); Anion Gap 13.3 (5-19); Aspartate Amino Transferase 23 U/L (0-40); Blood Urea Nitrogen 17 mg/dL (6-20); Calcium 8.1 mg/dL (8.5-10.5); Carbon Dioxide 25 mmol/L (22-29); Chloride 107 mmol/L (98-107); Globulin 2.8 g/dL (1.3-4.6); Glomerular Filtration Rate 98.9 mL/min (90-130); Glucose 94 mg/dL (65-115); Osmolality Calculated 293 mOsm/kg (285-295); Potassium 4.3 mmol/L (3.5-5.1); Sodium 141 mmol/L (136-145); Total Bilirubin 0.2 mg/dL (0.15-1.2); Total Protein 6.9 g/dL (6.6-8.7)
== END 2023-03-06 09:40 | disposition home or self-care (01) ==
PROVIDERS: PCP Family Medicine; Visit Provider Internal Medicine
DX: E11.9 Type 2 diabetes mellitus without complications (principal); E20.9 Hypoparathyroidism, unspecified; M17.0 Bilateral primary osteoarthritis of knee; Z71.89 Other specified counseling
CPT/HCPCS: 20610; 36415; 80053; J1100; J2795; J3301

== ENCOUNTER → 2023-03-12 14:29 | Outpatient (BNVA) | payer MEDICARE, SELFPAY | PROVIDERS: PCP Family Medicine; Visit Provider Specialist | DX: M18.12 Unilateral primary osteoarthritis of first carpometacarpal joint, left hand | CPT/HCPCS: 73110; 99213 ==

== ENCOUNTER → 2023-04-30 14:14 | Outpatient (BNVA) | payer MEDICARE, SELFPAY | PROVIDERS: PCP Family Medicine; Visit Provider Specialist | DX: M18.12 Unilateral primary osteoarthritis of first carpometacarpal joint, left hand (principal) | CPT/HCPCS: 99213 ==

== ENCOUNTER → 2023-06-11 10:53 | Outpatient (BNVA) | payer MEDICARE, SELFPAY | PROVIDERS: PCP Family Medicine; Visit Provider Internal Medicine | DX: E20.9 Hypoparathyroidism, unspecified (principal); E11.9 Type 2 diabetes mellitus without complications; R13.10 Dysphagia, unspecified; E66.01 Morbid (severe) obesity due to excess calories; Z68.41 Body mass index [BMI] 40.0-44.9, adult; Z79.84 Long term (current) use of oral hypoglycemic drugs | CPT/HCPCS: 36415; 80053; 80061; 82044; 83036; 84443; 99214 ==

== ENCOUNTER 2023-06-17 13:00 | Outpatient (CLI) | payer MEDICARE, SELFPAY ==
--- NOTE | 2023-06-17 13:00 | USR_ITS ---
PROCEDURE INFORMATION: Exam: US Soft Tissue Head and Neck, Thyroid Exam date and time: 06/17/2023 1:37 PM Age: 58 years old Clinical indication: Condition or disease; Thyroid disorder; Other: Hypothyroidism; Additional info: Hypoparathyroidism, 1315: Patient going to lab first then to US. Will be in wr TECHNIQUE: Imaging protocol: Real-time ultrasound scan of the neck with image documentation. Exam focused on the thyroid. COMPARISON: US thyroid [id number] 06/06/2022 10:27 AM FINDINGS: Right thyroid lobe: The right thyroid lobe measures 1.4 x 2.1 x 3.8 cm, normal in echotexture. No nodules. Left thyroid lobe: The left thyroid lobe measures 1.4 x 1.5 x 4.6 cm, normal in echotexture. No nodules. Isthmus: Isthmus measures 6 mm. No nodules. US/US thyroid [id number] IMPRESSION: 1. Unremarkable sonographic evaluation of the thyroid.
[2023-06-17 13:44] LABS: Anion Gap 14.8 (5-19); Blood Urea Nitrogen 16 mg/dL (8-23); Calcium 8.4 mg/dL (8.5-10.5); Carbon Dioxide 24 mmol/L (22-29); Chloride 108 mmol/L (98-107); Glomerular Filtration Rate 86.1 mL/min (90-130); Glucose 120 mg/dL (65-115); Osmolality Calculated 298 mOsm/kg (285-295); Potassium 3.8 mmol/L (3.5-5.1); Sodium 143 mmol/L (136-145)
== END 2023-06-17 13:01 | disposition home or self-care (01) ==
LOC: RAD 13:00
PROVIDERS: PCP Family Medicine; Visit Provider Internal Medicine
DX: E20.9 Hypoparathyroidism, unspecified (principal); E11.9 Type 2 diabetes mellitus without complications
CPT/HCPCS: 76536; 80048

== ENCOUNTER → 2023-06-20 07:57 | Outpatient (BNVA) | payer MEDICARE, SELFPAY | PROVIDERS: PCP Family Medicine; Visit Provider Nurse Practitioner | DX: M17.0 Bilateral primary osteoarthritis of knee (principal); Z71.89 Other specified counseling | CPT/HCPCS: 20610; J1100; J2795; J3301 ==

== ENCOUNTER 2023-09-08 09:07 | Outpatient (CLI) | payer MEDICARE, SELFPAY ==
[2023-09-08 10:27] LABS: Alanine Aminotransferase 24 U/L (0-41); Alkaline Phosphatase 68 U/L (40-130); Blood Urea Nitrogen 19 mg/dL (8-23); Calcium 8.3 mg/dL (8.5-10.5); Carbon Dioxide 25 mmol/L (22-29); Chloride 106 mmol/L (98-107); Chol HDL Ratio 2.65 mg/dL (1.0-5.00); Cholesterol 122 mg/dL (0-200); Globulin 2.9 g/dL (1.3-4.6); Glomerular Filtration Rate 98.6 mL/min (90-130); Glucose 154 mg/dL (65-115); HDL Cholesterol 46 mg/dL (60-100); LDL Cholesterol Calculated 45 mg/dL (50-129); LDL HDL Ratio 0.98 RATIO (0.00-3.22); Osmolality Calculated 303 mOsm/kg (285-295); Sodium 144 mmol/L (136-145); Thyroid Stimulating Hormone 3.96 uIU/mL (0.27-4.20); Total Bilirubin 0.2 mg/dL (0.15-1.2); Total Protein 6.9 g/dL (6.6-8.7); Triglycerides 157 mg/dL (0-150)
[2023-09-08 10:28] LABS: Creatinine Urine, Random 139 mg/dL (39-259); Microalbum Creatinine Ratio Ur 7 mg/dL (0-20); Microalbumin Random Urine 1 ug/dL (0-20)
[2023-09-08 10:31] LABS: Aspartate Amino Transferase 18 U/L (0-40)
[2023-09-08 10:53] LABS: Estmated Average Glucose 137; Hemoglobin A1C 6.4 % (4.0-6.0)
== END 2023-09-08 09:08 | disposition home or self-care (01) ==
LOC: LAB 09:10
PROVIDERS: PCP Family Medicine; Visit Provider Internal Medicine
DX: E20.9 Hypoparathyroidism, unspecified (principal); E11.9 Type 2 diabetes mellitus without complications; Z68.41 Body mass index [BMI] 40.0-44.9, adult; E66.01 Morbid (severe) obesity due to excess calories; E03.9 Hypothyroidism, unspecified; Z79.84 Long term (current) use of oral hypoglycemic drugs
CPT/HCPCS: 36415; 80053; 80061; 82044; 83036; 84443; 99214

== ENCOUNTER → 2023-09-26 07:54 | Outpatient (BNVA) | payer MEDICARE, SELFPAY | PROVIDERS: PCP Family Medicine; Visit Provider Specialist | DX: M17.0 Bilateral primary osteoarthritis of knee (principal) | CPT/HCPCS: 20610; J1100; J2795; J3301 ==

== ENCOUNTER → 2024-01-02 08:03 | Outpatient (BNVA) | payer MEDICARE, SELFPAY | PROVIDERS: PCP Family Medicine; Visit Provider Nurse Practitioner | DX: M17.0 Bilateral primary osteoarthritis of knee; Z71.89 Other specified counseling | CPT/HCPCS: 20610; J1100; J2795; J3301 ==

== ENCOUNTER 2024-01-05 11:40 | Outpatient (CLI) | payer MEDICARE, SELFPAY ==
[2024-01-05 12:31] LABS: Alanine Aminotransferase 36 U/L (0-41); Alkaline Phosphatase 63 U/L (40-130); Anion Gap 14.9 (5-19); Aspartate Amino Transferase 25 U/L (0-40); Blood Urea Nitrogen 19 mg/dL (8-23); Carbon Dioxide 24 mmol/L (22-29); Chloride 107 mmol/L (98-107); Chol HDL Ratio 2.55 mg/dL (1.0-5.00); Cholesterol 112 mg/dL (0-200); Globulin 2.8 g/dL (1.3-4.6); Glomerular Filtration Rate 86.1 mL/min (90-130); Glucose 129 mg/dL (65-115); HDL Cholesterol 44 mg/dL (60-100); LDL Cholesterol Calculated 39 mg/dL (50-129); LDL HDL Ratio 0.89 RATIO (0.00-3.22); Osmolality Calculated 298 mOsm/kg (285-295); Potassium 3.9 mmol/L (3.5-5.1); Sodium 142 mmol/L (136-145); Thyroid Stimulating Hormone 2.91 uIU/mL (0.27-4.20); Total Bilirubin 0.2 mg/dL (0.15-1.2); Total Protein 6.8 g/dL (6.6-8.7); Triglycerides 146 mg/dL (0-150)
[2024-01-05 12:35] LABS: Creatinine Urine, Random 163 mg/dL (39-259); Microalbum Creatinine Ratio Ur 6 mg/dL (0-20); Microalbumin Random Urine 1 ug/dL (0-20)
[2024-01-05 13:27] LABS: Estmated Average Glucose 140; Hemoglobin A1C 6.5 % (4.0-6.0)
== END 2024-01-05 11:41 | disposition home or self-care (01) ==
LOC: LAB 11:41
PROVIDERS: PCP Family Medicine; Visit Provider Internal Medicine
DX: E20.9 Hypoparathyroidism, unspecified (principal); E11.9 Type 2 diabetes mellitus without complications; E03.9 Hypothyroidism, unspecified; Z68.41 Body mass index [BMI] 40.0-44.9, adult; E66.01 Morbid (severe) obesity due to excess calories
CPT/HCPCS: 36415; 80053; 80061; 82044; 83036; 84443

== ENCOUNTER → 2024-01-07 08:00 | Outpatient (BNVA) | payer MEDICARE, SELFPAY | PROVIDERS: PCP Family Medicine; Visit Provider Internal Medicine | DX: E20.9 Hypoparathyroidism, unspecified (principal); E11.9 Type 2 diabetes mellitus without complications; Z79.84 Long term (current) use of oral hypoglycemic drugs; Z79.85 Long-term (current) use of injectable non-insulin antidiabetic drugs | CPT/HCPCS: 99214 ==

== ENCOUNTER 2024-01-30 12:25 | Outpatient (CLI) | payer MEDICARE, SELFPAY ==
[2024-01-30 13:09] LABS: Alanine Aminotransferase 24 U/L (0-41); Albumin Level 3.8 g/dL (3.5-5.2); Alkaline Phosphatase 72 U/L (40-130); Anion Gap 15.7 (5-19); Aspartate Amino Transferase 18 U/L (0-40); Blood Urea Nitrogen 16 mg/dL (8-23); Calcium 7.8 mg/dL (8.5-10.5); Carbon Dioxide 23 mmol/L (22-29); Chloride 107 mmol/L (98-107); Glomerular Filtration Rate 86.1 mL/min (90-130); Glucose 200 mg/dL (65-115); Osmolality Calculated 301 mOsm/kg (285-295); Potassium 3.7 mmol/L (3.5-5.1); Sodium 142 mmol/L (136-145); Total Bilirubin 0.2 mg/dL (0.15-1.2); Total Protein 6.8 g/dL (6.6-8.7)
== END 2024-01-30 12:26 | disposition home or self-care (01) ==
LOC: LAB 12:27
PROVIDERS: PCP Family Medicine; Visit Provider Internal Medicine
DX: E83.51 Hypocalcemia (principal)
CPT/HCPCS: 80053

== ENCOUNTER 2024-02-24 15:05 | Outpatient (CLI) | payer MEDICARE, SELFPAY ==
[2024-02-24 15:43] LABS: Alanine Aminotransferase 22 U/L (0-41); Albumin Level 3.9 g/dL (3.5-5.2); Alkaline Phosphatase 67 U/L (40-130); Anion Gap 15.8 (5-19); Aspartate Amino Transferase 18 U/L (0-40); Blood Urea Nitrogen 16 mg/dL (8-23); Calcium 8.2 mg/dL (8.5-10.5); Carbon Dioxide 24 mmol/L (22-29); Chloride 104 mmol/L (98-107); Globulin 2.9 g/dL (1.3-4.6); Glomerular Filtration Rate 86.1 mL/min (90-130); Glucose 180 mg/dL (65-115); Osmolality Calculated 296 mOsm/kg (285-295); Potassium 3.8 mmol/L (3.5-5.1); Sodium 140 mmol/L (136-145); Total Bilirubin 0.3 mg/dL (0.15-1.2); Total Protein 6.8 g/dL (6.6-8.7)
== END 2024-02-24 15:06 | disposition home or self-care (01) ==
LOC: LAB 15:06
PROVIDERS: PCP Family Medicine; Visit Provider Internal Medicine
DX: E20.9 Hypoparathyroidism, unspecified (principal); E11.9 Type 2 diabetes mellitus without complications
CPT/HCPCS: 80053

== ENCOUNTER → 2024-04-07 14:26 | Outpatient (BNVA) | payer MEDICARE, SELFPAY | PROVIDERS: PCP Family Medicine; Visit Provider Nurse Practitioner | DX: M17.0 Bilateral primary osteoarthritis of knee (principal); Z71.89 Other specified counseling; R03.0 Elevated blood-pressure reading, without diagnosis of hypertension | CPT/HCPCS: 20610; J1100; J2795; J3301 ==

== ENCOUNTER → 2024-07-09 08:30 | Outpatient (BNVA) | payer MEDICARE, SELFPAY | PROVIDERS: PCP Family Medicine; Visit Provider Internal Medicine | DX: E20.9 Hypoparathyroidism, unspecified (principal); E11.9 Type 2 diabetes mellitus without complications | CPT/HCPCS: 20610; 82340; 82570; 99214; J1100; J2795; J3301 ==

== ENCOUNTER → 2024-10-08 09:17 | Outpatient (BNVA) | payer MEDICARE, SELFPAY | PROVIDERS: PCP Family Medicine; Visit Provider Nurse Practitioner | DX: M17.0 Bilateral primary osteoarthritis of knee (principal); Z71.89 Other specified counseling; R03.0 Elevated blood-pressure reading, without diagnosis of hypertension | CPT/HCPCS: 20610; J1100; J2795; J3301; J9999 ==

== ENCOUNTER 2025-01-05 11:15 | Outpatient (CLI) | payer MEDICARE, SELFPAY ==
[2025-01-05 12:40] LABS: Estmated Average Glucose 114; Hemoglobin A1C 5.6 % (4.0-6.0)
[2025-01-05 12:42] LABS: Alanine Aminotransferase 19 U/L (0-41); Albumin Level 3.5 g/dL (3.5-5.2); Alkaline Phosphatase 68 U/L (40-130); Anion Gap 12.9 (5-19); Aspartate Amino Transferase 17 U/L (0-40); Blood Urea Nitrogen 11 mg/dL (8-23); Calcium 10.5 mg/dL (8.5-10.5); Carbon Dioxide 27 mmol/L (22-29); Chloride 107 mmol/L (98-107); Cholesterol 77 mg/dL (0-200); Globulin 2.9 g/dL (1.3-4.6); Glucose 92 mg/dL (65-115); HDL Cholesterol 35 mg/dL (60-100); Osmolality Calculated 295 mOsm/kg (285-295); Potassium 3.9 mmol/L (3.5-5.1); Sodium 143 mmol/L (136-145); Total Protein 6.4 g/dL (6.6-8.7); Triglycerides 65 mg/dL (0-150)
[2025-01-05 12:47] LABS: Creatinine Urine, Random 60 mg/dL (39-259); Microalbum Creatinine Ratio Ur 17 mg/dL (0-20)
== END 2025-01-05 11:16 | disposition home or self-care (01) ==
PROVIDERS: PCP Family Medicine; Visit Provider Internal Medicine
DX: E11.9 Type 2 diabetes mellitus without complications (principal); E20.9 Hypoparathyroidism, unspecified; Z68.41 Body mass index [BMI] 40.0-44.9, adult; E66.01 Morbid (severe) obesity due to excess calories
CPT/HCPCS: 36415; 80053; 80061; 82044; 83036

== ENCOUNTER → 2025-01-06 08:31 | Outpatient (BNVA) | payer MEDICARE, SELFPAY | PROVIDERS: PCP Family Medicine; Visit Provider Internal Medicine | DX: E11.9 Type 2 diabetes mellitus without complications (principal); E20.9 Hypoparathyroidism, unspecified; E66.01 Morbid (severe) obesity due to excess calories; Z68.41 Body mass index [BMI] 40.0-44.9, adult | CPT/HCPCS: 99214 ==

== ENCOUNTER → 2025-01-24 10:55 | Outpatient (BNVA) | payer MEDICARE, SELFPAY | PROVIDERS: PCP Family Medicine; Visit Provider Student in an Organized Health Care Education/Training Program | DX: Z12.11 Encounter for screening for malignant neoplasm of colon (principal) | CPT/HCPCS: 99024; 99204 ==

== ENCOUNTER 2025-02-22 12:16 | Day surgery (SDC) | payer MEDICARE, SELFPAY ==
[2025-02-22 12:39] VITALS: BP 128/70; PULSE 86; RESP 18; TEMP 36.3; O2SAT 94; BMI 27.9
--- NOTE | 2025-02-22 12:59 | W.PM.OPSUD ---
Surgery/Procedure H&P Update DATE OF PROCEDURE: February 22, 2025 DATE H&P PERFORMED: 01/24/25 H&P UPDATE INFORMATION: I have reviewed H&P completed within last 30 days, I have examined patient prior to procedure and No changes to prior documentation PLANNED PROCEDURE: Operation Date: 02/22/25 13:30 Proposed Procedures p EGD EGD with Biopsy [id number] G0105 Z12.11(Not Applicable) - James Carter MD s Colonoscopy(Not Applicable) - James Carter MD
--- NOTE | 2025-02-22 13:17 | ANES.PREANE2 ---
Pre-Anesthetic Assessment Height/Weight: Height 5 ft 10 in Weight 195 lb Temp Pulse Resp BP Pulse Ox O2 Del Method 97.3 F L 86 18 128/70 94 Room Air 02/22/25 12:39 02/22/25 12:39 02/22/25 12:39 02/22/25 12:39 02/22/25 12:39 02/22/25 12:39 Preop Diagnosis: GERD Operation Date: 02/22/25 13:30 Proposed Procedures p EGD EGD with Biopsy [id number] Z12.11(Not Applicable) - James Carter MD s Colonoscopy(Not Applicable) - James Carter MD Was Beta Etta taken within 24 hours: Yes Was Clonidine taken within 24 hours: N/A Last intake: Intake Last Liquid Date 02/21/25 Last Liquid Time 23:45 Last Solid Date 02/20/25 Last Solid Time 20:00 Social No alcohol and No tobacco Exam alert, oriented x 3, clear to auscultation bilaterally and regular rate & rhythm Airway Submandibular: within normal limits Cervical ROM: within normal limits Mallampati: Class III Comments: Comments: Edentulous Anesthetic Plan ASA status: 3 Anesthesia: MAC Other: No prior issues with anesthesia Completed bowel prep History of hypertension on metoprolol Patient has chronic angina, 20+ years. Multiple trips to the ER previously and cardiac workup has all been negative. EKG sinus rhythm On chronic nitro GERD, on Protonix Type 2 diabetes on Ozempic. Last taken 02/09/2025 Plan for MAC anesthesia Medications/Allergies Home Medications ?Medication ?Instructions ?Recorded ?Confirmed ?Last Taken ?Type albuterol sulfate 90 mcg/actuation 2 puff inhalation Q6H PRN 06/20/20 02/16/25 3 Months Ago History aerosol inhaler (Ventolin HFA) Shortness Of Breath ~11/16/24 fluticasone 250 mcg-salmeterol 50 1 inh inhalation BID 06/20/20 02/16/25 3 Months Ago History mcg/dose blistr powdr for ~11/16/24 inhalation (Advair Diskus) ketoconazole 2 % topical cream 1 applic topical BID #60 grams 12/11/20 02/16/25 02/16/25 Rx amitriptyline 25 mg tablet 25 mg PO DAILY 04/19/21 02/16/25 02/16/25 History isosorbide mononitrate 30 mg 30 mg PO .HS 07/12/21 02/16/25 02/16/25 History tablet,extended release 24 hr metoprolol succinate 25 mg 25 mg PO BID 07/12/21 02/16/25 02/16/25 History tablet,extended release 24 hr potassium chloride 20 mEq 20 meq PO QID 07/12/21 02/16/25 02/16/25 History tablet,extended release(part/cryst) ferrous gluconate 324 mg (38 mg 324 mg PO DAILY 11/01/21 02/16/25 1 Week Ago History iron) tablet ~02/09/25 nitroglycerin 0.4 mg sublingual 0.4 mg sublingual Q5M PRN Chest 11/01/21 02/16/25 1 Year Ago History tablet (Nitrostat) Pain ~02/17/24 oxycodone-acetaminophen 7.5 mg-325 1 tab PO TID PRN Pain 11/01/21 02/16/25 02/16/25 History mg tablet (Percocet) rosuvastatin 20 mg tablet 20 mg PO DAILY 11/01/21 02/16/25 02/16/25 History baclofen 10 mg tablet 10 mg PO BID 11/26/21 02/16/25 02/16/25 History pantoprazole 40 mg tablet,delayed 40 mg PO BID #60 tabs 11/26/21 02/16/25 02/16/25 Rx release ascorbic acid (vitamin C) 1,500 mg 600 mg PO QID 03/23/24 02/16/25 02/16/25 History tablet,extended release left hinged knee brace #1 ea 04/07/24 01/26/25 Unknown Rx semaglutide 1 mg/dose (4 mg/3 mL) 1 mg (0.75 mL) SUBCUT Q7D 90 days 01/06/25 02/16/25 02/09/25 Rx subcutaneous pen injector (Ozempic) #9.75 mL trazodone 150 mg tablet 150 mg PO DAILY #90 tabs 01/26/25 02/16/25 02/16/25 Rx bupropion HCl 150 mg 24 hr tablet, 150 mg PO DAILY 02/16/25 02/16/25 02/16/25 History extended release bupropion HCl 300 mg 24 hr tablet, 300 mg PO DAILY 02/16/25 02/16/25 02/16/25 History extended release calcitriol 0.5 mcg capsule 1 mcg PO DAILY 02/16/25 02/16/25 02/16/25 History topiramate 100 mg tablet 100 mg PO BID 02/16/25 02/16/25 02/16/25 History venlafaxine 150 mg 150 mg PO DAILY 02/16/25 02/16/25 02/16/25 History capsule,extended release 24 hr Allergies Allergy/AdvReac Type Severity Reaction Status Date / Time adhesive Allergy Mild rash Verified 01/26/25 14:08 Current Medications Generic Name Dose Route Start Last Admin Trade Name Freq PRN Reason Stop Dose Admin Sodium Chloride 1,000 mls @ 15 mls/hr 02/22/25 12:20 02/22/25 12:53 Sodium Chloride 0.9% IV 02/23/25 12:19 15 mls/hr .Q24H PRN Administration COLONOSCOPY FLUIDS PFSH Anesthesia Medical History Psychiatric care Anxiety Diabetes Asthma Obstructive sleep apnea Generalized anxiety disorder Depression, major, recurrent, in complete remission Family History Mother Lung disease Father Lung disease Diabetes Sister Lung disease Diabetes Family/Other Cancer Social History Smoking and tobacco/nicotine status: unknown if used tobacco/nicotine Second hand smoke exposure: Yes Alcohol intake: former Substance/Drug Use: never Lives independently: Yes Household members: friend(s) Marital status: / Current occupational status: disabled Do you think of yourself as: Straight/Heterosexual Current gender identity: Male
[2025-02-22 13:31] VITALS: BP 117/72; PULSE 71; RESP 10; TEMP 36.2; O2SAT 98
[2025-02-22 13:47] VITALS: BP 118/78; PULSE 67; RESP 14; O2SAT 95
--- NOTE | 2025-02-22 14:15 | ANE.PACU2 ---
Inpatient post-anesthesia follow up: Airway intact: Yes Vital signs: Temperature 97.1 F Pulse Rate 67 Respiratory Rate 14 Blood Pressure 118/78 Pulse Oximetry 95 Oxygen Delivery Me thod Room Air Oxygen Flow Rate Fraction of Inspir ed Oxygen Hydration adequate: Yes Nausea and vomiting: No Pain level: 1 Mental status: Baseline
== END 2025-02-22 14:15 | disposition home or self-care (01) ==
PROVIDERS: PCP Family Medicine; Visit Provider Student in an Organized Health Care Education/Training Program
PROC: 0DJ08ZZ Inspection of Upper Intestinal Tract, Via Natural or Artificial Opening Endoscopic (ICD-10-PCS; principal; 2025-02-22 13:30)
PROC: 0DJD8ZZ Inspection of Lower Intestinal Tract, Via Natural or Artificial Opening Endoscopic (ICD-10-PCS; CPT 45330; 2025-02-22 13:30)
DX: Z12.11 Encounter for screening for malignant neoplasm of colon (principal); K29.50 Unspecified chronic gastritis without bleeding; K92.1 Melena; K21.9 Gastro-esophageal reflux disease without esophagitis; I10 Essential (primary) hypertension; I20.89 Other forms of angina pectoris; E11.9 Type 2 diabetes mellitus without complications; Z79.891 Long term (current) use of opiate analgesic; F41.8 Other specified anxiety disorders; G47.33 Obstructive sleep apnea (adult) (pediatric)
CPT/HCPCS: 36416; 43239; 45378; 82962; 88305; 88342; J2704; J7030

== ENCOUNTER 2025-03-03 17:22 | Emergency (ER) | payer MEDICARE, SELFPAY ==
[2025-03-03 17:26] VITALS: BP 128/79; PULSE 76; TEMP 36.4; O2SAT 100; BMI 28.7
--- OUTSIDE RECORDS SUMMARY | 2025-03-03 17:32 | XMS_ITS | Clinical Summary ---
Author Organization [facility] de Address [address] [place] [address] Phone Care Team Providers Care Primary School Teacher Name Role Phone Pawel Aguilar MD Primary Care Provider [phone] Allergies No known active allergies Medications omeprazole (PRILOSEC) 20 mg Oral CpDR Take 20 mg by mouth daily. Active albuterol (PROVENTIL,VENT JAMARI) 90 mcg/Actuation Inhalation Aero Take 2 Puffs by inhalation every 6 hours as needed for Other (See Comment). Active FLUTICASONE/MYLES METEROL (ADVAIR HFA IN) Take 1 [place] by inhalation 2 times daily. Active AMLODIPINE BESYLATE/BENAZE PRIL (LOTREL PO) Take 1 Tab by mouth daily. Active citalopram (CELEXA) 10 mg Oral Tab Take 10 mg by mouth every 12 hours. Active aripiprazole (ABILIFY) 5 mg Oral Tab Take 5 mg by mouth daily. Active clonazePAM (KLONOPIN) 0.5 mg Oral Tab Take 0.5 mg by mouth 2 times daily. Active eszopiclone (LUNESTA) 3 mg Oral Tab Take 3 mg by mouth nightly as needed. Active topiramate (TOPAMAX) 100 mg Oral Tab Take 100 mg by mouth daily. topamax sr Active citalopram (CELEXA) 40 mg Oral Tab Take 40 mg by mouth daily. Active primidone (MYSOLINE) 25 MG Oral Tab Take 25 mg by mouth. Bedtime for shakes Active propoxyphene N-acetaminophen (DARVOCET-N 100) 100-650 mg Oral Tab Take 1 Tab by mouth every 6 hours as needed for Pain. Active benzonatate (TESSALON PERLES) 100 mg capsule Take 1 Cap by mouth 3 times daily as needed for Cough. 30 Cap 0 3 Active esomeprazole (NEXIUM) 20 mg Capsule, Delayed Release(E.C.) Take 40 mg by mouth daily before breakfast. Active buPROPion SR 12 hour (WELLBUTRIN-SR) 150 mg tablet Take 450 mg by mouth 2 times daily. Active calcitRIOL (ROCALTROL) 0.25 mcg capsule Take 0.25 mcg by mouth daily. Active metoprolol tartrate (LOPRESSOR) 25 mg tablet Take 25 mg by mouth 2 times daily. Active venlafaxine SR 24 hour 150 mg tablet Take 150 mg by mouth daily with breakfast. Active potassium chloride (KLOR-CON) 20 mEq Packet Take 20 mEq by mouth 2 times daily. Active calcium carbonate (CALTRATE) 600 mg (1,500 mg) Tablet Take 600 mg by mouth 3 times daily with meals. Active traMADol (ULTRAM) 50 mg tablet Take 50 mg by mouth every 6 hours as needed for Pain. Active ALPRAZolam (XANAX) 0.5 mg tablet Take 0.5 mg by mouth nightly as needed for Anxiety. Active metFORMIN (GLUCOPHAGE) 1,000 mg tablet Take 1,000 mg by mouth 2 times daily with meals. Active pravastatin (PRAVACHOL) 10 mg tablet Take 10 mg by mouth Daily LATE. Active aspirin (MONTSERRAT) 325 mg tablet Take 325 mg by mouth daily. Active naproxen (NAPROSYN) 500 mg tablet Take 1 Tab by mouth 2 times daily with meals. 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 Gender Identity Not on file Sexual Orientation Not on file Last Filed Vital Signs Vital Sign Reading Time Taken Comments Blood Pressure 105/68 08/19/2013 9:00 PM FRONT END ENGINEER Pulse 83 08/19/2013 7:58 PM FRONT END ENGINEER Temperature 37.1 C (98.7 F) 08/19/2013 8:32 PM FRONT END ENGINEER Respiratory Rate 18 08/19/2013 9:00 PM FRONT END ENGINEER Oxygen Saturation 98% 08/19/2013 9:00 PM FRONT END ENGINEER Inhaled Oxygen Concentration - - Weight 122.5 kg (270 lb) 08/19/2013 8:32 PM FRONT END ENGINEER Height 175.3 cm (5' 9 ) 08/19/2013 8:32 PM FRONT END ENGINEER Body Mass Index 39.87 08/19/2013 8:32 PM FRONT END ENGINEER Plan of Treatment Health Maintenance Due Date Last Done Comments DIABETES ANNUAL FOOT EXAM 1981 DIABETES ANNUAL RETINAL EXAM 1981 DIABETES HBA1C Q 6 MONTHS 1981 DIABETES MICROALBUMIN ANNUAL SCREEN 1981 LDL CHOLESTEROL ANNUAL 1981 DTAP/TDAP/TD VACCINES (1 - Tdap) 1982 COLORECTAL SCREENING 2008 Colorectal Cancer Screening 2008 FIT-DNA Q 3 years 2008 FIT/FOBT Q 1 year 2008 Flex Sig/CT Colonography Q 5 years 2008 ZOSTER VACCINE (1 of 2) 2013 INFLUENZA VACCINE (#1) 2025 RSV VACCINE (60+ or ) (1 - 1-dose 75+ series) 2038 Insurance MEDICAID [place] MEDICARE PART A AND B [employer] [id number] HMO Advance Directives For more information, please contact: [phone] * Full Code (Latest Code Status on File) Date Activated Date Inactivated Comments 05/25/2009 8:45 AM 05/26/2009 2:01 AM Care Teams Primary School Teacher Relationship Specialty Start Date End Date Pawel Aguilar MD [address] [id number] PCP - General 05/25/09
--- OUTSIDE RECORDS SUMMARY | 2025-03-03 17:32 | XMS_ITS | Clinical Summary ---
Author Organization [facility] Address [address] [facility] Attn: Epic Prelude ADT MARY SCHMITZJAZMIN [id number] Care Team Providers Care Entry Specialists Name Role Phone Pawel Aguilar MD Primary Care Provider [phone] Allergies No known active allergies Encounters Date Type Department Care Team Description 12/07/2024 External Device Data [facility] ABSTRACTION Provider, Abstract from Last 3 Months Social History Tobacco Use Types Packs/Day Years Used Date Smoking Tobacco: Never Alcohol Use Standard Drinks/Week Comments No 0 (1 standard drink = 0.6 oz pur e alcohol) Sex and Gender Information Value Date Recorded Sex Assigned at Not on file 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 Gender Identity Not on file Sexual Orientation Not on file Plan of Treatment Health Maintenance Due Date Last Done Comments DIABETES ANNUAL FOOT EXAM 1981 DIABETES ANNUAL RETINAL EXAM 1981 DIABETES HBA1C Q 6 MONTHS 1981 DIABETES MICROALBUMIN ANNUAL SCREEN 1981 LDL CHOLESTEROL ANNUAL 1981 DTAP/TDAP/TD VACCINES (1 - Tdap) 1982 FIT-DNA Q 3 years 2008 FIT/FOBT Q 1 year 2008 Flex Sig/CT Colonography Q 5 years 2008 ZOSTER VACCINE (2 of 2) 08/19/2022 06/24/2022 RSV VACCINE (60+ or ) (1 - Risk 60-74 years 1-dose series) 2023 INFLUENZA VACCINE (#1) 2025 , 03/19/2021, 03/08/2021, Additional history exists COVID-19 Vaccine (6 - 2024-2 6 season) 2025 03/17/2022, 04/20/2021, 03/19/2021, Additional history exists COLORECTAL SCREENING 06/01/2025 06/01/2015 Colorectal Cancer Screening 06/01/2025 Care Teams Entry Specialists Relationship Specialty Start Date End Date Pawel Aguilar MD [address] [id number] PCP - General 05/25/09
--- NOTE | 2025-03-03 18:52 | W.ED.GENADLT ---
HPI - General Adult General: Chief complaint: General Medical Stated complaint: Confusion shakey Time Seen by Provider: 03/03/25 18:24 History of Present Illness: Patient presents to the ED with waxing and waning confusion. This has been going on since 02/22. Patient states that at times he is clear, and other times he is not. Denies any fever, chills. This has been going on since his colonoscopy on 02/22. Patient states he is on Ozempic, and had EGD, however they were unable to perform the colonoscopy due to stool retention. He also had anesthesia during his colonoscopy. Associated symptoms: Reports nausea; Deny chest pain, dyspnea, rash or vomiting Related Data Home Medications ?Medication ?Instructions ?Recorded ?Confirmed albuterol sulfate 90 mcg/actuation 2 puff inhalation Q6H PRN 06/20/20 02/16/25 aerosol inhaler (Ventolin HFA) Shortness Of Breath fluticasone 250 mcg-salmeterol 50 1 inh inhalation BID 06/20/20 02/16/25 mcg/dose blistr powdr for inhalation (Advair Diskus) amitriptyline 25 mg tablet 25 mg PO DAILY 04/19/21 02/16/25 isosorbide mononitrate 30 mg 30 mg PO .HS 07/12/21 02/16/25 tablet,extended release 24 hr metoprolol succinate 25 mg 25 mg PO BID 07/12/21 02/16/25 tablet,extended release 24 hr potassium chloride 20 mEq 20 meq PO QID 07/12/21 02/16/25 tablet,extended release(part/cryst) ferrous gluconate 324 mg (38 mg 324 mg PO DAILY 11/01/21 02/16/25 iron) tablet nitroglycerin 0.4 mg sublingual 0.4 mg sublingual Q5M PRN Chest 11/01/21 02/16/25 tablet (Nitrostat) Pain oxycodone-acetaminophen 7.5 mg-325 1 tab PO TID PRN Pain 11/01/21 02/16/25 mg tablet (Percocet) rosuvastatin 20 mg tablet 20 mg PO DAILY 11/01/21 02/16/25 baclofen 10 mg tablet 10 mg PO BID 11/26/21 02/16/25 ascorbic acid (vitamin C) 1,500 mg 600 mg PO QID 03/23/24 02/16/25 tablet,extended release bupropion HCl 150 mg 24 hr tablet, 150 mg PO DAILY 02/16/25 02/16/25 extended release bupropion HCl 300 mg 24 hr tablet, 300 mg PO DAILY 02/16/25 02/16/25 extended release topiramate 100 mg tablet 100 mg PO BID 02/16/25 02/16/25 venlafaxine 150 mg 150 mg PO DAILY 02/16/25 02/16/25 capsule,extended release 24 hr Previous Rx's ?Medication ?Instructions ?Recorded ketoconazole 2 % topical cream 1 applic topical BID #60 grams 12/11/20 pantoprazole 40 mg tablet,delayed 40 mg PO BID #60 tabs 11/26/21 release left hinged knee brace #1 ea 04/07/24 semaglutide 1 mg/dose (4 mg/3 mL) 1 mg (0.75 mL) SUBCUT Q7D 90 days 01/06/25 subcutaneous pen injector (Ozempic) #9.75 mL trazodone 150 mg tablet 150 mg PO DAILY #90 tabs 01/26/25 calcitriol 0.5 mcg capsule 1 mcg (2 x 0.5 mcg) PO DAILY #60 02/28/25 caps naloxone 4 mg/actuation nasal 4 mg intranasal Q2M PRN opioid 03/03/25 spray (Narcan) overdose #2 ea Allergies Allergy/AdvReac Type Severity Reaction Status Date / Time adhesive Allergy Mild rash Verified 03/03/25 17:34 Review of Systems Const: Denies: fever(s), chills, change in weight or fatigue Eyes: Denies: change in vision ENMT: Denies: throat pain or dry mouth Card: Denies: chest pain Resp: Denies: dyspnea GI: Reports: abdominal pain, nausea, diarrhea, constipation and melena; Denies: vomiting or hematochezia : Denies: dysuria Musc: Denies: neck pain or back pain (chronic, no acute) Skin/Breast: Denies: rash, nipple discharge or breast mass Neuro: Denies: seizure-like activity Psych: Denies: anxiety or depression Edison/Lymph: Denies: easy bruising PFS ED PFSH: Medical History (Updated 03/03/25 @ 20:09 by CHELITA Tim) Psychiatric care Anxiety Diabetes Asthma Obstructive sleep apnea Generalized anxiety disorder Depression, major, recurrent, in complete remission Family History Mother Lung disease Father Lung disease Diabetes Sister Lung disease Diabetes Family/Other Cancer Social History Smoking and tobacco/nicotine status: unknown if used tobacco/nicotine Second hand smoke exposure: Yes Alcohol intake: former Substance/Drug Use: never Lives independently: Yes Household members: friend(s) Marital status: / Current occupational status: disabled Do you think of yourself as: Straight/Heterosexual Current gender identity: Male Physical Exam Const: COMMON NORMALS: no acute distress, average body habitus, patient oriented x3 and alert HENMT: COMMON NORMALS: normocephalic and atraumatic HEAD & SCALP: normocephalic and atraumatic Lymph: LYMPHATIC: no lymphadenopathy noted Chest: COMMONS NORMALS: normal inspection of the chest and normal palpation of entire chest wall Resp: COMMON NORMALS: normal respiratory effort, No retractions and clear to auscultation bilaterally AUSCULTATION: clear to auscultation bilaterally Cardio: COMMON NORMALS: regular rate and regular rhythm RATE: regular rate RHYTHM: regular rhythm GI: COMMON NORMALS: Normal to inspection, nondistended, normoactive bowel sounds present, Soft to palpation and non-tender PALPATION: Yes Soft to palpation : COMMON NORMALS: Yes no CVA tenderness BLADDER/KIDNEY EXAM: Yes no CVA tenderness Back/Pelvis: COMMON NORMALS: no CVA tenderness Extremity: COMMON NORMALS: normal to inspection, full ROM and capillary refill normal Neuro: COMMON NORMALS: patient oriented x3 and CN's II-XII intact bilaterally SENSORIUM/ORIENTATION: Yes alert Skin: COMMON NORMALS: no rashes or lesions noted, no wounds and turgor normal GENERAL SKIN EXAM: no rashes or lesions noted and turgor normal Course Reevaluation(s): Reevaluation #1: Doing well, no issues. Vital Signs: Vital signs: Vital Signs Temperature 97.6 F 03/03/25 17:26 Pulse Rate 69 03/03/25 20:18 Respiratory Rate 17 03/03/25 20:18 Blood Pressure 126/72 03/03/25 20:18 Pulse Oximetry 96 03/03/25 20:18 Oxygen Delivery Me thod Room Air 03/03/25 19:16 MDM - General Adult Medical Decision Making Patient is a 59-year-old gentleman on chronic oxycodone taking 4/daily. He has had waxing and waning symptoms of confusion since his colonoscopy that was unable to be performed on 02/22, however EGD was done, patient did go under anesthesia. According to his VBG, he has a mild acute respiratory acidosis associated with his chronic narcotics. I discussed with patient. I have recommended he reduce this to twice daily from 4 times a day. The current record we have to the right is inaccurate and patient is taking 4 daily through his pain management. He is also status post to assess any of his confusion and hold his narcotics if he has any waxing and waning symptoms. was present and explained all of this. She has Narcan on hand at home Lab Data 03/03/25 19:00 03/03/25 19:00 Laboratory Results WBC 7.43 10^3/uL (3.29-11.43) 03/03/25 19:00 RBC 3.81 10^6/uL (3.85-5.65) L 03/03/25 19:00 Hgb 11.60 g/dL (11.27-16.99) 03/03/25 19:00 Hct 35.4 % (37-53) L 03/03/25 19:00 MCV 92.9 fl (82-101) 03/03/25 19:00 MCH 30.4 pg (27-33) 03/03/25 19:00 MCHC 32.8 g/dL (30-55) 03/03/25 19:00 RDW 13.2 % (12.1-15.1) 03/03/25 19:00 Plt Count 268 10^3/cmm (157-399) 03/03/25 19:00 MPV 8.9 fL (7.4-10.4) 03/03/25 19:00 Neut % (Auto) 44.5 % 03/03/25 19:00 Lymph % (Auto) 36.5 % 03/03/25 19:00 [place] % (Auto) 12.5 % 03/03/25 19:00 Eos % (Auto) 5.7 % 03/03/25 19:00 Baso % (Auto) 0.4 % 03/03/25 19:00 Neut # (Auto) 3.31 10^3/uL (1.8-7.7) 03/03/25 19:00 Lymph # (Auto) 2.7 10^3/uL (0.8-4.8) 03/03/25 19:00 [place] # (Auto) 0.9 10^3/uL (0.2-0.9) 03/03/25 19:00 Eos # (Auto) 0.4 10^3/uL (0.0-0.8) 03/03/25 19:00 Baso # (Auto) 0.0 10^3/uL (0.0-0.1) 03/03/25 19:00 Nucleated RBC % (auto) 0 % 03/03/25 19:00 Nucleated RBCs # 0.0 /100WBC 03/03/25 19:00 Specimen Type Venous 03/03/25 19:00 [place] Test N/a 03/03/25 19:00 VBG pH 7.33 (7.32-7.42) 03/03/25 19:00 VBG pCO2 54.2 mmHg (41-51) H 03/03/25 19:00 VBG pO2 27.9 mmHg (25-40) 03/03/25 19:00 VBG HCO3 28.6 mmol/L (24-28) H 03/03/25 19:00 VBG Base Excess 1.8 mmol/L (-3.0-3.0) 03/03/25 19:00 VBG Hematocrit 37.0 % (42-52) L 03/03/25 19:00 Goggles Assembler ID [email or web address] 03/03/25 19:00 Sodium 138 mmol/L (136-145) 03/03/25 19:00 Potassium 4.0 mmol/L (3.5-5.1) 03/03/25 19:00 Chloride 102 mmol/L (98-107) 03/03/25 19:00 Carbon Dioxide 28 mmol/L (22-29) 03/03/25 19:00 Anion Gap 12.0 (5-19) 03/03/25 19:00 BUN 37 mg/dL (8-23) H 03/03/25 19:00 Creatinine 1.2 mg/dL (0.7-1.2) 03/03/25 19:00 GFR Calculation 61.6 mL/min (90-130) L 03/03/25 19:00 Glucose 60 mg/dL (65-115) L 03/03/25 19:00 Calculated Osmolality 293 mOsm/kg (285-295) 03/03/25 19:00 Lactic Acid 1.1 mmol/L (0.5-2.2) 03/03/25 19:00 Calcium 11.8 mg/dL (8.5-10.5) H 03/03/25 19:00 Total Bilirubin 0.2 mg/dL (0.15-1.2) 03/03/25 19:00 AST 14 U/L (0-40) 03/03/25 19:00 ALT 17 U/L (0-41) 03/03/25 19:00 Alkaline Phosphatase 52 U/L (40-130) 03/03/25 19:00 Ammonia 20 umol/L (16-60) 03/03/25 19:00 Total Protein 6.9 g/dL (6.6-8.7) 03/03/25 19:00 Albumin 3.9 g/dL (3.5-5.2) 03/03/25 19:00 Globulin 3.0 g/dL (1.3-4.6) 03/03/25 19:00 TSH 2.87 uIU/mL (0.27-4.20) 03/03/25 19:00 Urine Color Yellow (Yellow) 03/03/25 18:46 Urine Appearance Clear (CLEAR) 03/03/25 18:46 Urine pH 5.5 (5-7) 03/03/25 18:46 Ur Specific [place] 1.012 (1.005-1.030) 03/03/25 18:46 Urine Protein Negative (Negative) 03/03/25 18:46 Urine Glucose (UA) Negative (Normal) 03/03/25 18:46 Urine Ketones Negative (Negative) 03/03/25 18:46 Urine Blood Negative (Negative) 03/03/25 18:46 Urine Nitrate Negative (Negative) 03/03/25 18:46 Urine Bilirubin Negative (Negative) 03/03/25 18:46 Urine Urobilinogen 0.2 mg/dL (Negative) 03/03/25 18:46 Ur Leukocyte Esterase Negative (Negative) 03/03/25 18:46 Urine RBC 0-2 /hpf (0-2) 03/03/25 18:46 Urine WBC 0-5 /hpf (0-5) 03/03/25 18:46 Ur Squamous Epith Cells 0-5 /hpf (0-5) 03/03/25 18:46 Amorphous Sediment Not Reportable 03/03/25 18:46 Urine Bacteria None seen /hpf (NONE) 03/03/25 18:46 Hyaline Casts 0.40 /lpf 03/03/25 18:46 Urine Opiates Screen Negative ng/mL (Negative) 03/03/25 18:46 Ur Barbiturates Screen Negative ng/mL (Negative) 03/03/25 18:46 Ur Phencyclidine Scrn Negative ng/mL (Negative) 03/03/25 18:46 Ur Amphetamines Screen Negative ng/mL (Negative) 03/03/25 18:46 U Benzodiazepines Scrn Negative ng/mL (Negative) 03/03/25 18:46 Urine Cocaine Screen Negative ng/mL (Negative) 03/03/25 18:46 U Marijuana (THC) Screen Negative ng/mL (Negative) 03/03/25 18:46 Ethyl Alcohol < 10 mg/dL (0-10) 03/03/25 19:00 No radiology studies performed this visit Discharge Plan Discharge Patient Disposition: Home Clinical Impression: Hypersomnia due to drug, Acute respiratory acidosis Condition: Stable Prescriptions: New naloxone [Narcan] 4 mg/actuation spray,non-aerosol 4 mg intranasal Q2M PRN (Reason: opioid overdose) Qty: 2 0RF Rx Instructions: spray 1 dose into ONE nostril; alternate nostrils w each dose until help arrives No Action fluticasone propion-salmeterol [Advair Diskus] 250-50 mcg/dose blister with device 1 inh inhalation BID albuterol sulfate [Ventolin HFA] 90 mcg/actuation HFA aerosol inhaler 2 puff inhalation Q6H PRN (Reason: Shortness Of Breath) ketoconazole 2 % cream 1 applic topical BID Qty: 60 3RF Rx Instructions: to feet BID x 5 weeks then prn potassium chloride 20 mEq tablet,ER particles/crystals 20 meq PO QID isosorbide mononitrate 30 mg tablet extended release 24 hr 30 mg PO .HS metoprolol succinate 25 mg tablet extended release 24 hr 25 mg PO BID amitriptyline 25 mg tablet 25 mg PO DAILY Ozempic 1 mg/dose (4 mg/3 mL) pen injector 1 mg SUBCUT Q7D 90 Days Qty: 9.75 1RF trazodone 150 mg tablet 150 mg PO DAILY Qty: 90 3RF ascorbic acid (vitamin C) 1,500 mg tablet extended release 600 mg PO QID ferrous gluconate 324 mg (38 mg iron) tablet 324 mg PO DAILY oxycodone-acetaminophen [Percocet] 7.5-325 mg tablet 1 tab PO TID PRN (Reason: Pain) nitroglycerin [Nitrostat] 0.4 mg tablet, sublingual 0.4 mg sublingual Q5M PRN (Reason: Chest Pain) Rx Instructions: do not exceed 3 doses per episode rosuvastatin 20 mg tablet 20 mg PO DAILY (DME) left hinged knee brace See Rx Instructions .Route .MEDSUPPLY Qty: 1 0RF Rx Instructions: As directed. order 99 days calcitriol 0.5 mcg capsule 1 mcg PO DAILY Qty: 60 2RF Rx Instructions: TAKE 2 CAPSULES EVERY DAY baclofen 10 mg tablet 10 mg PO BID pantoprazole 40 mg tablet,delayed release (DR/EC) 40 mg PO BID Qty: 60 0RF venlafaxine 150 mg capsule,extended release 24hr 150 mg PO DAILY Rx Instructions: TAKE 1 CAPSULE EVERY DAY topiramate 100 mg tablet 100 mg PO BID Rx Instructions: TAKE 1 TABLET TWICE DAILY bupropion HCl 300 mg tablet extended release 24 hr 300 mg PO DAILY Rx Instructions: TAKE 1 TABLET EVERY MORNING bupropion HCl 150 mg tablet extended release 24 hr 150 mg PO DAILY Rx Instructions: TAKE 1 TABLET EVERY MORNING Discharge Orders: Discharge ED (Routine); Ordered 03/03/25 Ordered By: Selina Celis Referrals: Pawel Aguilar MD [Primary Care Provider, Family Practice] Discharge Diet: Usual diet Patient Instructions: Hypersomnia, Opioid Safety, Pain Management, Patient Portal & Juanito Instructions Activity Restrictions/Additional Instructions: - More Narcan was sent to the pharmacy to avoid any increased sedation. - Please call your doctor for follow-up on today's visit to assess you on an outpatient basis - Reduce your chronic pain medication to twice daily. If you are confused when you want your pain medication, hold your pain medication to further assess -Return to ED with worsening symptoms of sedation. Print Language: Greek Coding Level of Care Code ED Water Quality Tester for Dali Sigala
[2025-03-03 18:54] LABS: Glucose Urine UA Negative (Normal); Nitrate Urine Negative (Negative); Specific Gravity, Urine 1.012 (1.005-1.030)
[2025-03-03 18:59] LABS: Add Urine Microscopic? YES
[2025-03-03 19:03] LABS: PCP Screen Urine Negative (Negative)
[2025-03-03 19:11] LABS: Base Excess VBG 1.8 mmol/L (-3.0-3.0); Blood Gas Sample Type Venous; HCO3 VBG 28.6 mmol/L (24-28); Hematocrit 35.4 % (37-53); Hemoglobin 11.60 g/dL (11.27-16.99); Mean Corpuscular HGB Conc 32.8 g/dL (30-55); Mean Corpuscular Hemoglobin 30.4 pg (27-33); Mean Corpuscular Volume 92.9 fl (82-101); Nucleated Red Blood Cells % 0 %; PCO2 VBG 54.2 mmHg (41-51); PO2 VBG 27.9 mmHg (25-40); Platelet Count 268 10^3/cmm (157-399); Red Blood Count 3.81 10^6/uL (3.85-5.65); Venous Blood Gas Hematocrit 37.0 % (42-52); White Blood Count 7.43 10^3/uL (3.29-11.43); pH VBG 7.33 (7.32-7.42)
[2025-03-03 19:16] VITALS: BP 123/73; O2SAT 94
[2025-03-03 19:34] LABS: Lactic Sepsis W/Reflex 1.1 mmol/L (0.5-2.2)
[2025-03-03 19:40] LABS: Ammonia 20 umol/L (16-60)
[2025-03-03 19:43] LABS: Alanine Aminotransferase 17 U/L (0-41); Albumin Level 3.9 g/dL (3.5-5.2); Alkaline Phosphatase 52 U/L (40-130); Anion Gap 12.0 (5-19); Aspartate Amino Transferase 14 U/L (0-40); Blood Urea Nitrogen 37 mg/dL (8-23); Calcium 11.8 mg/dL (8.5-10.5); Carbon Dioxide 28 mmol/L (22-29); Chloride 102 mmol/L (98-107); Creatinine Clr Calc Pharmacy 73.2279; Globulin 3.0 g/dL (1.3-4.6); Glucose 60 mg/dL (65-115); Osmolality Calculated 293 mOsm/kg (285-295); Potassium 4.0 mmol/L (3.5-5.1); Sodium 138 mmol/L (136-145); Thyroid Stimulating Hormone 2.87 uIU/mL (0.27-4.20); Total Protein 6.9 g/dL (6.6-8.7)
[2025-03-03 19:44] LABS: Alcohol Level < 10 mg/dL (0-10)
[2025-03-03 20:12] VITALS: BP 126/72; O2SAT 95
[2025-03-03 20:18] VITALS: BP 126/72; PULSE 69; RESP 17; O2SAT 96
== END 2025-03-03 20:18 | disposition home or self-care (01) ==
PROVIDERS: Emergency Provider Physician Assistant; PCP Family Medicine
DX: F11.982 Opioid use, unspecified with opioid-induced sleep disorder (principal); J96.02 Acute respiratory failure with hypercapnia; E11.9 Type 2 diabetes mellitus without complications
CPT/HCPCS: 36415; 80053; 80306; 80307; 81001; 82140; 82803; 83605; 84443; 85025; 99283

== ENCOUNTER → 2025-03-10 13:22 | Outpatient (BNVA) | payer MEDICARE, SELFPAY | PROVIDERS: PCP Family Medicine; Visit Provider Student in an Organized Health Care Education/Training Program | DX: Z09 Encounter for follow-up examination after completed treatment for conditions other than malignant neoplasm (principal) | CPT/HCPCS: 99213 ==

== ENCOUNTER → 2025-04-07 09:06 | Outpatient (BNVA) | payer MEDICARE, SELFPAY | PROVIDERS: PCP Family Medicine; Visit Provider Internal Medicine Endocrinology, Diabetes & Metabolism | DX: E20.9 Hypoparathyroidism, unspecified (principal); E11.9 Type 2 diabetes mellitus without complications; Z79.899 Other long term (current) drug therapy | CPT/HCPCS: 99214 ==